=== PATIENT | male | born 1950 | race Caucasian/White ===

== ENCOUNTER → 2020-10-01 10:43 | Outpatient (BNVA) | payer MEDICARE, OTHER, SELFPAY | PROVIDERS: PCP Internal Medicine; Visit Provider Internal Medicine | DX: J44.9 Chronic obstructive pulmonary disease, unspecified (principal); F17.200 Nicotine dependence, unspecified, uncomplicated | CPT/HCPCS: 99212 ==

== ENCOUNTER 2020-10-02 09:01 | Outpatient (REF) | payer MEDICARE, OTHER, SELFPAY ==
[2020-10-02 09:40] LABS: MANUAL DIFF FLAG NO
[2020-10-02 09:55] LABS: Basophils Absolute Auto 0.1 X10*3/uL (0.0-0.2); Basophils Percent Auto 0.7 % (0-2); Eosinophils Absolute Auto 0.3 X10*3/uL (0.0-0.4); Hematocrit 44.3 % (42-52); Hemoglobin 15.1 g/dl (14.0-18.0); Imm Gran Abs Auto 0.04 X10*3/uL (0.00-0.03); Imm Gran Pct Auto 0.5 % (0.0-0.4); Lymphocytes Absolute Auto 2.1 X10*3/uL (1.2-4.9); Lymphocytes Percent Auto 24.6 % (20-40); Mean Corpuscular HGB Conc 34.1 g/dl (31.0-36.0); Mean Corpuscular Hemoglobin 31.8 pg (27.0-33.0); Mean Corpuscular Volume 93.3 fL (80-98); Mean Platelet Volume 9.2 fL (9.4-12.4); Monocytes Absolute Auto 1.1 X10*3/uL (0.1-1.2); Monocytes Percent Auto 12.9 % (2-11); Neutrophils Absolute Auto 5.1 X10*3/uL (2.0-8.3); Neutrophils Percent Auto 58.3 % (45-73); Platelet Count 283 X10*3/uL (160-400); Red Blood Count 4.75 X10*6/uL (4.60-5.80); Red Cell Distribution Width 12.4 % (11.0-16.0); White Blood Count 8.7 X10*3/uL (4.8-10.8)
[2020-10-02 10:09] LABS: Glucose Urine UA NEG (NEG); Leukocyte Esterase Urine NEG (NEG); Nitrite Urine NEG (NEG); Urine Blood TRACE (NEG); Urine Ketones NEG (NEG); Urine Protein NEG (NEG-TRACE)
[2020-10-02 10:17] LABS: Appearance Urine CLEAR; Color Urine YELLOW
[2020-10-02 10:27] LABS: Alanine Aminotransferase 22 U/L (0-40); Albumin Level 4.4 g/dL (3.5-5.0); Alkaline Phosphatase 91 U/L (39-117); Anion Gap 12 (12-20); Aspartate Amino Transferase 17 U/L (5-37); Bilirubin Total 0.6 mg/dL (0.0-1.0); Blood Urea Nitrogen 20 mg/dL (9-16); Calcium 9.1 mg/dL (8.4-10.2); Carbon Dioxide 31 mmol/L (22-29); Chloride 101 mmol/L (96-108); Cholesterol 131 mg/dL; Estimated Glomerular Filt Rate > 60; Glucose Fasting 103 mg/dL (60-99); HDL Cholesterol 42 mg/dL; LDL Cholesterol Calculated 64 mg/dl; Potassium 4.6 mmol/l (3.3-5.1); Sodium 139 mmol/L (135-145); Total Protein 7.4 g/dL (6.5-8.0); Triglycerides 125 mg/dL
[2020-10-02 10:51] LABS: TSH reflex Free T4 0.56 mIU/mL (0.32-4.0)
[2020-10-02 11:10] LABS: RBC Urine 0-2 /HPF (0); Squamous Epithelial Cell Urine TRACE /LPF; WBC Urine 0-2 /HPF (0-4)
== END 2020-10-02 09:02 | disposition home or self-care (01) ==
LOC: HO.LAB 09:01
PROVIDERS: PCP Internal Medicine; Visit Provider Internal Medicine
DX: E78.00 Pure hypercholesterolemia, unspecified (principal); I10 Essential (primary) hypertension; F17.200 Nicotine dependence, unspecified, uncomplicated; E66.3 Overweight
CPT/HCPCS: 36415; 80053; 80061; 81001; 84443; 85025

== ENCOUNTER 2020-10-29 07:46 | Outpatient (REF) | payer MEDICARE, OTHER, SELFPAY ==
--- NOTE | 2020-10-29 07:49 | CT_ITS ---
EXAMINATION: CT ANGIOGRAM ABDOMEN AND PELVIS CLINICAL INFORMATION: Abdominal aortic aneurysm. COMPARISON: None TECHNIQUE: Multiple axial images were obtained through the abdomen and pelvis following the administration of 80 mL of Omnipaque 350 intravenous contrast. Images were reviewed on a dedicated 3-D workstation. This CT examination was performed using dose optimization techniques as appropriate, variously including the following: *Automated exposure control *Adjustment of mA and/or kV according to patient size (this includes techniques or standardized protocols for targeted exams where dose is matched to indication/reason for exam; i.e. extremities or head) *Use of iterative reconstruction technique DLP: 241 mGy-cm FINDINGS: The distal thoracic aorta is normal in caliber. The celiac and superior mesenteric artery origins are widely patent. The inferior mesenteric artery is opacified via a patent marginal artery. Redemonstration of an infrarenal abdominal aortic aneurysm post endovascular repair. At the L3-L4 interspace, the excluded sac measures up to a maximal diameter of 6 x 5.8 cm, similar to the prior study. Distally, there is contrast within the excluded lumen along the posterior surface of the aortic component of the endograft as well as medial to the right iliac component. No defined feeding vessel is identified. Fusiform dilation of the right common iliac is again identified, measuring up to 2.7 cm in diameter, unchanged. The left common iliac is ectatic and measures up to 1.6 cm in diameter. The bilateral common, internal and external iliac arteries are well opacified and without hemodynamically significant stenosis. The proximal femoral vessels are patent. On the right, there is mild ectasia of the right common femoral artery up to 1.3 cm in diameter. There is calcified plaque resulting in mild/moderate narrowing of the left common femoral artery. There is an unremarkable appearance of the venous structures for an arterial phase of contrast. NONVASCULAR: The lung bases are unremarkable. No pleural effusions. The imaged heart is unremarkable. The liver is normal in size, attenuation and overall contour. No focal hepatic lesions are identified. There is no intrahepatic or extrahepatic duct dilation. The gallbladder is unremarkable. The spleen is unremarkable. The adrenal nodules are unremarkable. Minimal prominence of the distal pancreatic duct which is similar to prior. The pancreas is otherwise unremarkable. The kidneys are normal in size and have symmetric nephrograms. No focal renal lesions are identified. There are no renal calculi, hydronephrosis or hydroureter. There is a normal partially distended bladder contour. The prostate is not enlarged. The distal esophagus and stomach are unremarkable. The small and large bowel are normal in caliber. There is scattered colonic diverticulosis without inflammation to suggest diverticulitis. There is a normal appendix. There is no abdominopelvic or retroperitoneal lymphadenopathy seen. There is no free intra-abdominal fluid. There are endplate degenerative changes of the thoracolumbar spine with grade 1 retrolisthesis of L5 on S1. There is no acute or aggressive bony abnormality. CT/CT angio abdomen pelvis IMPRESSION: Stable appearance of infrarenal abdominal aortic aneurysm post endovascular repair. The excluded sac is stable in size and measures up to 6 x 5.8 cm. Distally, there is contrast within the excluded lumen along the posterior surface of the aortic component of the endograft and medial aspect of the right iliac component. Stable right common iliac artery aneurysm and ectasia of the left common iliac artery. Colonic diverticulosis.
[2020-10-29] MEDS: iohexoL 350 MG/ML 100 ML INFUS..BTL IV (08:56)
== END 2020-10-29 07:47 | disposition home or self-care (01) ==
LOC: HO.CT 07:46
PROVIDERS: PCP Internal Medicine; Visit Provider Surgery Vascular Surgery
DX: I71.4 Abdominal aortic aneurysm, without rupture (principal)
CPT/HCPCS: 74174; Q9967

== ENCOUNTER → 2020-11-19 09:43 | Outpatient (BNVA) | payer MEDICARE, OTHER, SELFPAY | PROVIDERS: PCP Internal Medicine; Visit Provider Surgery Vascular Surgery | DX: I71.4 Abdominal aortic aneurysm, without rupture (principal) | CPT/HCPCS: Q3014 ==

== ENCOUNTER → 2020-11-25 08:59 | Outpatient (BNVA) | payer MEDICARE, OTHER, SELFPAY | PROVIDERS: PCP Internal Medicine; Visit Provider Internal Medicine | DX: I25.10 Atherosclerotic heart disease of native coronary artery without angina pectoris (principal); I71.4 Abdominal aortic aneurysm, without rupture; I10 Essential (primary) hypertension; E78.5 Hyperlipidemia, unspecified; F17.200 Nicotine dependence, unspecified, uncomplicated; Z79.82 Long term (current) use of aspirin; Z79.899 Other long term (current) drug therapy; Z71.6 Tobacco abuse counseling | CPT/HCPCS: 93005; 99212 ==

== ENCOUNTER 2021-01-20 15:45 | Outpatient (REF) | payer MEDICARE, OTHER, SELFPAY ==
[2021-01-21 10:54] LABS: SARS COV2 PCR INHOUSE NEGATIVE (Negative)
== END 2021-01-20 15:46 | disposition home or self-care (01) ==
LOC: HO.LAB 15:45
PROVIDERS: Visit Provider Internal Medicine
DX: Z20.822 Contact with and (suspected) exposure to COVID-19 (principal)
CPT/HCPCS: C9803; U0003

== ENCOUNTER 2021-01-27 07:45 | Outpatient (REF) | payer MEDICARE, OTHER, SELFPAY ==
--- NOTE | ~2021-01-27 | CT_ITS ---
EXAMINATION: CT CHEST SCREENING CLINICAL INFORMATION: Lung cancer screening COMPARISON: Previous chest CT most recent November 2019 TECHNIQUE: Multidetector volumetric CT imaging of the chest is performed without contrast using low dose technique. Additional 2D coronal and sagittal reformatted images and axial 3D maximum intensity projection (MIP) images are generated on the CT workstation. This CT examination was performed using dose optimization techniques as appropriate, variously including the following: *Automated exposure control *Adjustment of mA and/or kV according to patient size (this includes techniques or standardized protocols for targeted exams where dose is matched to indication/reason for exam; i.e. extremities or head) *Use of iterative reconstruction technique DLP: 54 mGy-cm FINDINGS: LUNGS: There is evidence of emphysema. There is an irregularly-shaped lobulated central right upper lobe nodule. This is difficult to separate from the adjacent vessels. This measures approximately 3.7 x 1.7 cm in AP and transverse dimension axial image 176 series 5. There is surrounding satellite pulmonary nodules. The largest is a semisolid right upper lobe nodule that measures 1 x 1.1 cm axial image 145 series 4. There is a 3 mm semisolid right middle lobe nodule axial image 302 series 5. There is subsegmental atelectasis at the right lung base. MEDIASTINUM: There may be right hilar lymphadenopathy. There is a slightly enlarged precarinal lymph node that measures 1.2 cm axial image 24 series 3. No other enlarged mediastinal lymph nodes are seen. The heart does not appear enlarged. There is mild coronary artery calcification. There is no pericardial effusion. The thoracic aorta is tortuous. PLEURA: There is no pleural effusion. No pleural mass or thickening. AXILLA: No lymphadenopathy. UPPER ABDOMEN: Unremarkable OSSEOUS STRUCTURES: There are degenerative changes of the spine. CT/CT lung screening IMPRESSION: Increasing central irregularly-shaped right upper lobe nodule suspicious for neoplasm and surrounding satellite right upper lobe nodules. Mediastinal and right hilar lymphadenopathy. Coronary artery calcification. ASSESSMENT: Lung-RADS category 4X: Very suspicious RECOMMENDATION: PET CT scan or sampling recommended. Findings will be communicated by the [place] work flow yarn polishing machine operator Marilin Morris.
== END 2021-01-27 07:46 | disposition home or self-care (01) ==
LOC: HO.CT 07:45
PROVIDERS: Visit Provider Surgery
DX: Z12.2 Encounter for screening for malignant neoplasm of respiratory organs (principal); F17.210 Nicotine dependence, cigarettes, uncomplicated
CPT/HCPCS: 71271

== ENCOUNTER 2021-02-02 12:38 | Outpatient (REF) | payer MEDICARE, OTHER, SELFPAY ==
--- NOTE | 2021-02-02 | PFT_ITS ---
INDICATION: Pulmonary nodule. SPIROMETRY: The FEV1 to FVC 67% with an FEV1 of 1.94 L, which is 69% predicted, and an FVC of 2.87 L, which is 75% predicted. No significant response to bronchodilators noted. Maximum voluntary ventilation 70% predicted. LUNG VOLUMES: Total lung capacity 92% predicted with a residual volume of 122% predicted. DIFFUSION CAPACITY: DLCO 57% predicted. COMPARISONS: None available. INTERPRETATION: There is an obstructive ventilatory defect consistent with moderate COPD. No significant response to bronchodilators noted. The patient also has a mild decrease in maximum voluntary ventilation secondary to deconditioning. Lung volumes do demonstrate a trend of air trapping due to the COPD. The patient also has a moderate diffusion impairment. Clinical correlation warranted. Lowell Virgen MD MR/MODL / [id number]
== END 2021-02-02 12:39 | disposition home or self-care (01) ==
LOC: HO.RESP 12:38
PROVIDERS: PCP Internal Medicine; Visit Provider Surgery
DX: R91.1 Solitary pulmonary nodule (principal)
CPT/HCPCS: 94060; 94727; 94729

== ENCOUNTER → 2021-02-05 10:52 | Outpatient (BNVA) | payer MEDICARE, OTHER, SELFPAY | PROVIDERS: PCP Internal Medicine; Visit Provider Surgery | DX: R91.8 Other nonspecific abnormal finding of lung field (principal); R59.0 Localized enlarged lymph nodes; Z79.899 Other long term (current) drug therapy; Z79.82 Long term (current) use of aspirin; F17.210 Nicotine dependence, cigarettes, uncomplicated | CPT/HCPCS: 99212 ==

== ENCOUNTER → 2021-03-12 09:27 | Outpatient (BNVA) | payer MEDICARE, OTHER, SELFPAY | PROVIDERS: PCP Internal Medicine; Visit Provider Surgery | DX: C34.91 Malignant neoplasm of unspecified part of right bronchus or lung (principal); F17.210 Nicotine dependence, cigarettes, uncomplicated; Z79.899 Other long term (current) drug therapy | CPT/HCPCS: 99212 ==

== ENCOUNTER 2021-03-29 08:26 | Outpatient (REF) | payer MEDICARE, OTHER, SELFPAY ==
--- NOTE | ~2021-03-29 | US_ITS ---
EXAMINATION: US ULTRASOUND-GUIDED CORE BIOPSY AND FNA CLINICAL INFORMATION: Lung cancer. Increased uptake in the left axilla on PET scan. COMPARISON: Previous PET/CT scan 02/05/[address] January 2021. TECHNIQUE: Procedure and risks and benefits including bleeding and infection were discussed with the patient and informed consent was obtained. The left axilla was prepped and draped in the usual sterile fashion. The skin and soft tissues were anesthetized with 1% lidocaine plain. Using ultrasound guidance and a coaxial system, access to the largest left axillary lymph node was obtained. Four 20-gauge core biopsies were obtained. Additional 22-gauge FNA specimen was also obtained. FINDINGS: There are several at least 3 left axillary lymph nodes. The largest lymph node was targeted for ultrasound-guided core biopsy and fine-needle aspiration. This measures 3.2 x 1.5 x 1.3 cm in sagittal AP and longitudinal dimension. This has normal ultrasound morphology with a fatty hilum and normal hilar flow and very thin cortex. US/US biopsy lymph node IMPRESSION: Ultrasound-guided left axillary lymph node core biopsy and FNA.
--- NOTE | ~2021-03-29 | US_ITS ---
EXAMINATION: US ULTRASOUND-GUIDED CORE BIOPSY AND FNA CLINICAL INFORMATION: Lung cancer. Increased uptake in the left axilla on PET scan. COMPARISON: Previous PET/CT scan 02/05/[address] January 2021. TECHNIQUE: Procedure and risks and benefits including bleeding and infection were discussed with the patient and informed consent was obtained. The left axilla was prepped and draped in the usual sterile fashion. The skin and soft tissues were anesthetized with 1% lidocaine plain. Using ultrasound guidance and a coaxial system, access to the largest left axillary lymph node was obtained. Four 20-gauge core biopsies were obtained. Additional 22-gauge FNA specimen was also obtained. FINDINGS: There are several at least 3 left axillary lymph nodes. The largest lymph node was targeted for ultrasound-guided core biopsy and fine-needle aspiration. This measures 3.2 x 1.5 x 1.3 cm in sagittal AP and longitudinal dimension. This has normal ultrasound morphology with a fatty hilum and normal hilar flow and very thin cortex. US/US guided fine needle asp IMPRESSION: Ultrasound-guided left axillary lymph node core biopsy and FNA.
[2021-03-29] MEDS: Lidocaine HCl 1 % MPF 5 ML VIAL SUBCUT (10:30)
== END 2021-03-29 08:27 | disposition home or self-care (01) ==
LOC: HO.US 08:26
PROVIDERS: Visit Provider Surgery
DX: C34.91 Malignant neoplasm of unspecified part of right bronchus or lung (principal); R59.0 Localized enlarged lymph nodes
CPT/HCPCS: 10005; 38505; 76942; 88173; 88305; 88341; 88342

== ENCOUNTER 2021-04-12 10:45 | Outpatient (REF) | payer MEDICARE, OTHER, SELFPAY ==
--- NOTE | ~2021-04-12 | MR_ITS ---
EXAMINATION: MR BRAIN WITHOUT AND WITH CONTRAST CLINICAL INFORMATION: Staging. COMPARISON: Head CT June 04, 2014. TECHNIQUE: Multiplanar, multisequence imaging of the brain was performed before and after the intravenous administration of 8 mL of Gadavist. FINDINGS: There is no acute infarction, mass, hemorrhage, or extra-axial collection. No abnormal or unexpected intracranial enhancement is seen. The ventricles, sulci, and basilar cisterns are normal in size and configuration. Mild to moderate patchy foci of T2/FLAIR hyperintensity are seen in the cerebral white matter compatible with chronic microangiopathy. The flow voids of the major intracranial arteries appear intact. The bones and extracranial soft tissues are within normal limits. Moderate paranasal sinus mucosal thickening is noted MR/MR head/brain wo/w con IMPRESSION: No mass lesion, acute infarction, or abnormal intracranial enhancement.
== END 2021-04-12 10:46 | disposition home or self-care (01) ==
LOC: HO.MRI 10:45
PROVIDERS: PCP Internal Medicine; Visit Provider Internal Medicine
DX: C34.91 Malignant neoplasm of unspecified part of right bronchus or lung (principal)
CPT/HCPCS: 70553; A9585

== ENCOUNTER → 2021-04-23 09:40 | Outpatient (BNVA) | payer MEDICARE, OTHER, SELFPAY | PROVIDERS: PCP Internal Medicine; Visit Provider Surgery | DX: C34.91 Malignant neoplasm of unspecified part of right bronchus or lung (principal); Z79.899 Other long term (current) drug therapy | CPT/HCPCS: 99212 ==

== ENCOUNTER 2021-06-07 10:46 | Outpatient (REF) | payer MEDICARE, OTHER, SELFPAY ==
--- NOTE | ~2021-06-07 | CT_ITS ---
EXAMINATION: CT ANGIOGRAM ABDOMEN AND PELVIS CLINICAL INFORMATION: Dominant renal aortic aneurysm COMPARISON: CT abdomen pelvis on 10/29/2020 TECHNIQUE: Multiple axial images were obtained through the abdomen and pelvis before and following the administration of 80 mL of Omnipaque 350 intravenous contrast. Images were reviewed on a dedicated 3-D workstation. This CT examination was performed using dose optimization techniques as appropriate, variously including the following: *Automated exposure control *Adjustment of mA and/or kV according to patient size (this includes techniques or standardized protocols for targeted exams where dose is matched to indication/reason for exam; i.e. extremities or head) *Use of iterative reconstruction technique DLP: 210 mGy-cm FINDINGS: Lower chest: Unremarkable. There are no pleural effusions. Liver: Normal in size and attenuation. No focal lesions. Gallbladder and bile ducts: The gallbladder is normal. No intrahepatic or extrahepatic biliary ductal dilatation. Spleen: Normal in size and attenuation. Pancreas: Unremarkable. Adrenal glands: Unremarkable. Right kidney: The right kidney is normal. There is no hydronephrosis or hydroureter. Left kidney: The left kidney is normal. There is no hydronephrosis or hydroureter. Lymph nodes: There is no lymphadenopathy in the abdomen or pelvis. Gastrointestinal tract: The stomach, small, and large bowel are normal in course and caliber. Colonic diverticulosis is noted. Urinary bladder: The bladder is normal. Pelvic organs: The prostate is unremarkable. Vasculature: Prior endovascular repair of an infrarenal abdominal aortic aneurysm with an aortobiiliac graft. The [place] aneurysm sac measures 5.9 x 5.9 cm, stable from prior. There is a small thin linear contrast which appears to be outside endograft (series #5, images 43-48) is also stable compared to the prior exam. There is redemonstration of an excluded 2.7 cm right common iliac artery aneurysm. The celiac artery, SMA, and bilateral renal arteries patent. The origin of the CLAUDIA is excluded, however the CLAUDIA fills via retrograde collaterals from the SMA. Additional findings: There is no intraperitoneal free air or fluid. Soft tissues: Unremarkable. Osseous structures: Degenerative disc disease of L5-S1. CT/CT angio abdomen pelvis IMPRESSION: 1. Endovascular repair of an infrarenal abdominal aortic aneurysm with an aortobiiliac graft. Stable size and appearance of the [place] aneurysm sac. No definite evidence of endoleak. 2. Stable size of the excluded right common iliac artery aneurysm.
[2021-06-07] MEDS: iohexoL 350 MG/ML 100 ML INFUS..BTL IV (11:39)
== END 2021-06-07 10:47 | disposition home or self-care (01) ==
LOC: HO.CT 10:46
PROVIDERS: Visit Provider Surgery Vascular Surgery
DX: I71.4 Abdominal aortic aneurysm, without rupture (principal)
CPT/HCPCS: 74174; Q9967

== ENCOUNTER → 2021-06-17 09:22 | Outpatient (BNVA) | payer MEDICARE, OTHER, SELFPAY | PROVIDERS: PCP Internal Medicine; Referring Provider Internal Medicine; Visit Provider Surgery Vascular Surgery | DX: I71.4 Abdominal aortic aneurysm, without rupture (principal) | CPT/HCPCS: 99212 ==

== ENCOUNTER 2021-08-20 07:42 | Outpatient (REF) | payer MEDICARE, OTHER, SELFPAY ==
[2021-08-20 08:24] LABS: Blood Urea Nitrogen 14 mg/dL (9-16); Estimated Glomerular Filt Rate > 60
== END 2021-08-20 07:43 | disposition home or self-care (01) ==
LOC: HO.LAB 07:42
PROVIDERS: PCP Internal Medicine; Visit Provider Surgery
DX: C34.91 Malignant neoplasm of unspecified part of right bronchus or lung (principal)
CPT/HCPCS: 36415; 82565; 84520

== ENCOUNTER 2021-08-23 08:41 | Outpatient (REF) | payer MEDICARE, OTHER, SELFPAY ==
--- NOTE | ~2021-08-23 | CT_ITS ---
EXAMINATION: CT CHEST WITH CONTRAST CLINICAL INFORMATION: Lung cancer. COMPARISON: Previous chest CT January 2021 TECHNIQUE: Multidetector volumetric CT imaging of the chest was obtained after the administration of 85 mL of Omnipaque 350 intravenous contrast without immediate adverse reactions. Axial MIP volume rendering provided. Sagittal and coronal reformatted images were obtained. This CT examination was performed using dose optimization techniques as appropriate, variously including the following: *Automated exposure control *Adjustment of mA and/or kV according to patient size (this includes techniques or standardized protocols for targeted exams where dose is matched to indication/reason for exam; i.e. extremities or head) *Use of iterative reconstruction technique DLP: 113 mGy-cm FINDINGS: LUNGS: The previously identified central right upper lobe nodule appears decreased in size. There is residual bronchial wall thickening seen in this region. This is difficult to measure and compare with previous exam. The largest nodular component separate from blood vessels measures 0.7 x 1.2 cm axial image 159 series 7, however, including the entire area including the airways and adjacent vessel, this measures 1.5 x 3 cm axial image 156 series 4. There is an area of bronchial soft tissue opacification that extends anteromedially axial image 155 series 7. The previously identified more superior medial right upper lobe semisolid nodule measuring 8 mm axial image 147 series 5 on January 2021 exam is no longer seen. There are scattered areas of bronchial soft tissue opacification seen in the right upper lobe. The lungs are otherwise clear. MEDIASTINUM: There are small bilateral hilar and mediastinal lymph nodes. No enlarged lymph nodes are seen. The heart does not appear enlarged. There is no coronary artery calcification. The thoracic aorta is tortuous. There is plaque seen in the proximal descending thoracic aorta. PLEURA: There is no pleural effusion. No pleural mass or thickening. AXILLA: There are small bilateral axillary lymph nodes. No enlarged axillary lymph nodes are seen. No chest wall mass is seen. OSSEOUS STRUCTURES: There are degenerative changes of the spine. No fracture or bone lesion is seen. CT/CT chest w con IMPRESSION: Interval decrease in size in the central right upper lobe nodule. There is residual bronchial wall thickening and areas of bronchial soft tissue opacification in the right upper lobe.
--- NOTE | ~2021-08-23 | CT_ITS ---
EXAMINATION: CT ABDOMEN WITH CONTRAST CLINICAL INFORMATION: Lung cancer. COMPARISON: Previous CTA of the abdomen and pelvis May [address] and multiple nonenhanced chest CT scans. TECHNIQUE: Contiguous axial thin section helical images of the abdomen were performed following the administration of oral contrast and 85 mL of Omnipaque 350 intravenous contrast. The data set was reformatted in the coronal and sagittal planes and reviewed on an independent workstation. This CT examination was performed using dose optimization techniques as appropriate, variously including the following: *Automated exposure control *Adjustment of mA and/or kV according to patient size (this includes techniques or standardized protocols for targeted exams where dose is matched to indication/reason for exam; i.e. extremities or head) *Use of iterative reconstruction technique DLP: 165 mGy-cm FINDINGS: LIVER, GALLBLADDER, AND BILIARY TREE: The liver is normal in size, shape and attenuation. There is a small 5 mm low-attenuation lesion in the high dome of the liver axial image 10 series 3. This is not appreciated on previous exams. This is difficult to characterize due to small size. The gallbladder is normal. There is no biliary duct dilatation. PANCREAS: The main pancreatic duct in the head of the pancreas is slightly prominent measuring 4-5 mm. The pancreas is otherwise unremarkable. SPLEEN: Unremarkable. ADRENAL GLANDS AND KIDNEYS: The adrenal glands are unremarkable. There is a small cyst in the upper pole of the right kidney. The kidneys are otherwise unremarkable. BOWEL LOOPS: There is diverticulosis of the colon. Visualized bowel is otherwise unremarkable. The visualized appendix is unremarkable. LYMPH NODES: Normal. There is a small umbilical hernia containing fat. VASCULAR: There is an abdominal aortic aneurysm. This measures 5 x 5.1 cm in transverse and AP dimension and does not appear appreciably changed in size or shape. There is an aortic stent graft that appears unchanged. BONES: There is degenerative disc disease at L5-S1. CT/CT abdomen w con IMPRESSION: 5 mm liver lesion difficult to characterize due to small size. This is not identified on previous available exams. Slightly prominent pancreatic duct measuring 4-5 mm in the head of the pancreas similar to previous exams. Diverticulosis of the colon. Small right renal cyst. Stable abdominal aortic aneurysm and aortic stent graft.
[2021-08-23] MEDS: iohexoL 350 MG/ML 100 ML INFUS..BTL 85 ML IV (10:46)
== END 2021-08-23 08:42 | disposition home or self-care (01) ==
LOC: HO.CT 08:41
PROVIDERS: Visit Provider Surgery
DX: C34.91 Malignant neoplasm of unspecified part of right bronchus or lung (principal); R91.1 Solitary pulmonary nodule
CPT/HCPCS: 71260; 74160; Q9967

== ENCOUNTER → 2021-08-27 09:25 | Outpatient (BNVA) | payer MEDICARE, OTHER, SELFPAY | PROVIDERS: PCP Internal Medicine; Visit Provider Surgery | DX: C34.91 Malignant neoplasm of unspecified part of right bronchus or lung (principal); R59.0 Localized enlarged lymph nodes; Z79.899 Other long term (current) drug therapy; Z79.82 Long term (current) use of aspirin; Z87.891 Personal history of nicotine dependence | CPT/HCPCS: 99212 ==

== ENCOUNTER 2021-09-06 14:46 | Outpatient (REF) | payer MEDICARE, OTHER, SELFPAY ==
--- NOTE | ~2021-09-06 | MR_ITS ---
EXAMINATION: MR ABDOMEN WITHOUT AND WITH CONTRAST CLINICAL INFORMATION: Previous reports indicate history of lung cancer. Abnormal CT. The report of CT 08/23/2021 indicates 0.5 cm low attenuating lesion dome of liver. Dilation of the main pancreatic duct. COMPARISON: Selected portions of CT 08/23/2021. TECHNIQUE: Anatomic and fluid sensitive MR sequences were used to examine the abdomen. Imaging before and after the IV administration of 7.5 mL of Gadavist. FINDINGS: LIVER: There is a sharply defined homogeneous T2 intense non-enhancing mass in hepatic segment 8 which corresponds to the findings on recent CT. This is the morphology, signal pattern and lack of enhancement diagnostic of a small cyst. This does not have any suspicious features and does not require any further evaluation. The right lobe of the liver measures 15.6 cm which is close to the mean expected. The hepatic contour is smooth. The background hepatic signal is homogeneous. There is no suspicious focal liver lesion. BILIARY TRACT: The gallbladder is not distended. There is no cholelithiasis. There is no biliary dilation. SPLEEN: Within normal limits. PANCREAS: The main pancreatic duct is mildly prominent. This appears similar to CT angiography of 04/27/2020. There is no pancreatic mass or peripancreatic stranding. ADRENAL GLANDS: Within normal limits. KIDNEYS: There is no dilation of the urinary collecting system on either side. No suspicious renal mass. The nephrograms are homogeneous and symmetric. There is mild nonspecific perinephric stranding. GASTROINTESTINAL TRACT: There is no small bowel dilation. No definite bowel wall thickening. ABDOMINAL WALL: No significant hernia is appreciated. LYMPHOVASCULAR STRUCTURES AND FLUID: There is a known abdominal aortic aneurysm. There has been endograft treatment. No retroperitoneal hemorrhage. MUSCULOSKELETAL: No acute or suspicious osseous abnormality. VISUALIZED LOWER CHEST: The chest has been recently examined. No large signal abnormality in the visualized lung bases. MR/MR abdomen wo/w con IMPRESSION: 1. The low attenuating lesion in the dome of the liver on CT corresponds to a cyst. This is benign and does not require any further evaluation. 2. There is mild nonspecific pancreatic ductal dilation without evidence of mass, extrinsic compression or pancreatic mass. This is not significantly changed since at least 04/27/2020.
== END 2021-09-06 14:47 | disposition home or self-care (01) ==
LOC: HO.MRI 14:46
PROVIDERS: Visit Provider Surgery
DX: C34.91 Malignant neoplasm of unspecified part of right bronchus or lung (principal)
CPT/HCPCS: 74183; A9585

== ENCOUNTER 2021-09-14 13:04 | Outpatient (REF) | payer MEDICARE, OTHER, SELFPAY ==
--- NOTE | ~2021-09-14 | PE_ITS ---
EXAMINATION: Fluorine-18 FDG PET/CT Scan CLINICAL INDICATION: Subsequent treatment management. Malignant neoplasm of unspecified part of right lung. Status post chemotherapy and radiation therapy May,. PROCEDURE: 62 minutes following the intravenous administration of 13.6 mCi of fluorine 18 FDG, images from the base of the skull to the mid thighs were obtained using a combined PET/CT scanner with CT scan based attenuation correction. No oral contrast was administered. No intravenous contrast was administered. Transverse, coronal, sagittal, and volume reconstruction projections were obtained. The patient's blood glucose as determined by a finger stick, was 102 mg/dl immediately prior to injection. Total CT exam dose-length product 449.08 mGy-cm * These CT images were obtained using dose optimization techniques as appropriate, variously including the following: Automated exposure control * Adjustment of mA and/or kV according to patient size (this includes techniques or standardized protocols for targeted exams where dose is matched to indication/reason for exam; i.e. extremities or head) * Use of iterative reconstruction technique COMPARISON: Neither the images nor the report of a prior PET CT scan dated 02/05/2021, likely performed at [facility], are not available. More recent diagnostic CT scan of the chest, abdomen, and pelvis, dated 08/23/2021, is available for comparison. MRI of the abdomen dated 09/06/2021 is also available for comparison. A less recent chest CT scan dated 01/27/2021 is also available for comparison. FINDINGS: NECK AND VISUALIZED HEAD: No foci of abnormal FDG activity are noted. The distribution of FDG activity is physiological. There is no cervical lymphadenopathy. There is prominent mucosal thickening with associated mildly increased FDG activity in the left maxillary sinus, likely due to a sinusitis. THORAX: There is mildly increased FDG activity, SUVmax 2.6, slice 83/267, in the mid right upper lobe in the region of a 3.7 x 1.7 cm irregularly-shaped opacity visualized on the 01/28/2020 CT scan. Opacity in this region is not well delineated on the current study and the CT appearance is similar to the more recent 08/26/2021 CT scan which shows some irregular opacity abutting bronchi and vessels in this region but without clear margins on the current CT images. No additional pulmonary nodules are visualized. There is a focus of mildly increased FDG activity in the mid esophagus, just superior to the level of the [place] showing SUVmax 3.9, slice 80/267 with no definite corresponding CT abnormality. No additional foci of abnormal FDG activity are present in the chest. There is no mediastinal, supraclavicular, or axillary lymphadenopathy. There is no pleural or pericardial fluid, or pneumothorax. ABDOMEN AND PELVIS: No foci of abnormal FDG activity are present in the abdomen or pelvis. The liver is unremarkable. A 0.5 cm hypodensity in the dome of the right lobe visualized on the diagnostic IV contrast enhanced CT scan dated 08/23/2021, and subsequently identified is a small cyst on the 09/06/2021 MRI is not evident on these nondiagnostic CT images. There is no abnormal FDG activity at any site in the liver. A subcentimeter hypodense cyst posteriorly in the upper pole of the right kidney is unchanged from prior studies and probably too small to characterize on the FDG PET images but likely photopenic. The kidneys are otherwise unremarkable. The gallbladder, spleen, adrenal glands and pancreas are unremarkable. There is mild FDG activity throughout the gastrointestinal tract without a suspicious focal component. There is diverticulosis without evidence of diverticulitis. The hollow viscera are otherwise unremarkable. The pelvic organs are unremarkable. There is no retroperitoneal, mesenteric, pelvic or inguinal lymphadenopathy. MUSCULOSKELETAL: There are no foci of abnormal FDG activity in the osseous structures. There are degenerative changes in the spine and chronic anterior wedge deformity with no associated abnormal FDG activity of the T7. VASCULAR: Diffuse vascular calcifications including coronary are noted. An aortobiiliac vascular graft is in place with no associated abnormal FDG activity. PET/PET CT fusion skull to thigh IMPRESSION: 1. There is mild FDG activity in the region of an opacity identified on the 01/27/[address] scan. This opacity is now significantly smaller on these nondiagnostic CT images as well as on the recent diagnostic 08/23/2021 CT scan. These findings suggest a significant response to therapy, but neither the report nor the images of a prior PET CT scan dated 02/05/2021 are available for comparison. If these become available, an addendum to this report will be dictated. 2. A small focus of mild FDG activity is present in the mid esophagus just superior to the level of the [place] and this is nonspecific. This could be inflammatory or malignant in etiology. No associated CT abnormality is present. This could be further characterized with endoscopy, if clinically indicated. 3. No additional abnormalities suspicious for other metastatic or malignant lesions are noted. 4. Left maxillary sinusitis. 5. Diffuse vascular calcifications including coronary.
== END 2021-09-14 13:05 | disposition home or self-care (01) ==
LOC: HO.PET 13:04
PROVIDERS: PCP Internal Medicine; Visit Provider Surgery
DX: Z13.89 Encounter for screening for other disorder (principal)

== ENCOUNTER → 2021-10-01 09:25 | Outpatient (BNVA) | payer MEDICARE, OTHER, SELFPAY | PROVIDERS: PCP Internal Medicine; Visit Provider Surgery | DX: C34.91 Malignant neoplasm of unspecified part of right bronchus or lung (principal); Z79.899 Other long term (current) drug therapy; Z87.891 Personal history of nicotine dependence | CPT/HCPCS: 99212 ==

== ENCOUNTER 2021-10-05 14:04 | Outpatient (REF) | payer MEDICARE, OTHER, SELFPAY ==
--- NOTE | 2021-10-05 16:03 | PFT_ITS ---
Forced vital capacity is slightly reduced. FEV1, moderately reduced. CXH41-33 is markedly reduced. MVV, moderately reduced. No response to bronchodilator therapy was noted. Total lung capacity is normal. Residual volume is slightly increased. Diffusion capacity, moderately decreased. CONCLUSION: Chronic obstructive pulmonary disease, moderately severe. No response to bronchodilator therapy was noted. MD DIMA Coates/MODL / [id number]
== END 2021-10-05 14:05 | disposition home or self-care (01) ==
LOC: HO.RESP 14:04
PROVIDERS: PCP Internal Medicine; Visit Provider Surgery
DX: C34.91 Malignant neoplasm of unspecified part of right bronchus or lung (principal)
CPT/HCPCS: 94060; 94727; 94729

== ENCOUNTER → 2021-11-29 08:42 | Outpatient (BNVA) | payer MEDICARE, OTHER, SELFPAY | PROVIDERS: PCP Internal Medicine; Referring Provider Internal Medicine; Visit Provider Internal Medicine | DX: I25.10 Atherosclerotic heart disease of native coronary artery without angina pectoris (principal); I71.4 Abdominal aortic aneurysm, without rupture; I10 Essential (primary) hypertension; E78.5 Hyperlipidemia, unspecified | CPT/HCPCS: 93005; 99212 ==

== ENCOUNTER 2022-02-16 07:48 | Outpatient (REF) | payer MEDICARE, OTHER, SELFPAY ==
[2022-02-16 08:14] LABS: MANUAL DIFF FLAG NO
[2022-02-16 08:37] LABS: Basophils Percent Auto 0.5 % (0-2); Eosinophils Absolute Auto 0.2 X10*3/uL (0.0-0.4); Eosinophils Percent Auto 2.2 % (0-4); Hematocrit 39.6 % (42.0-52.0); Hemoglobin 13.4 g/dl (14.0-18.0); Imm Gran Abs Auto 0.02 X10*3/uL (0.00-0.03); Imm Gran Pct Auto 0.3 % (0.0-0.4); Lymphocytes Absolute Auto 1.1 X10*3/uL (1.2-4.9); Lymphocytes Percent Auto 14.3 % (20-40); Mean Corpuscular HGB Conc 33.8 g/dl (31.0-36.0); Mean Corpuscular Volume 91.7 fL (80.0-98.0); Monocytes Percent Auto 12.4 % (2-11); Neutrophils Absolute Auto 5.4 x10*3/uL (2.0-8.3); Neutrophils Percent Auto 70.3 % (45-73); Platelet Count 227 X10*3/uL (160-400); Red Blood Count 4.32 X10*6/uL (4.60-5.80); Red Cell Distribution Width 12.7 % (11.0-16.0); White Blood Count 7.7 X10*3/uL (4.8-10.8)
[2022-02-16 09:09] LABS: Alanine Aminotransferase 17 U/L (0-40); Albumin Level 4.5 g/dL (3.5-5.0); Alkaline Phosphatase 104 U/L (39-117); Anion Gap 13 (12-20); Aspartate Amino Transferase 15 U/L (5-37); Bilirubin Total 0.4 mg/dL (0.0-1.0); Blood Urea Nitrogen 19 mg/dL (9-16); Calcium 9.7 mg/dL (8.4-10.2); Carbon Dioxide 29 mmol/L (22-29); Chloride 100 mmol/L (96-108); Cholesterol 124 mg/dL; Estimated Glomerular Filt Rate > 60; Glucose Fasting 109 mg/dL (60-99); HDL Cholesterol 36 mg/dL; LDL Cholesterol Calculated 60 mg/dl; Potassium 4.4 mmol/L (3.3-5.1); Sodium 138 mmol/L (135-145); Total Protein 7.5 g/dL (6.5-8.0); Triglycerides 140 mg/dL
[2022-02-16 09:44] LABS: Appearance Urine CLEAR; Color Urine YELLOW; Glucose Urine UA NEG (NEG); Leukocyte Esterase Urine NEG (NEG); Nitrite Urine NEG (NEG); Urine Blood NEG (NEG); Urine Ketones NEG (NEG); Urine Protein NEG (NEG-TRACE)
== END 2022-02-16 07:49 | disposition home or self-care (01) ==
LOC: HO.LAB 07:48
PROVIDERS: PCP Internal Medicine; Visit Provider Internal Medicine
DX: I10 Essential (primary) hypertension (principal); E78.00 Pure hypercholesterolemia, unspecified
CPT/HCPCS: 36415; 80053; 80061; 81003; 84443; 85025

== ENCOUNTER 2022-05-04 09:43 | Outpatient (REF) | payer MEDICARE, OTHER, SELFPAY ==
--- NOTE | ~2022-05-04 | CT_ITS ---
EXAMINATION: CT CHEST WITHOUT CONTRAST CLINICAL INFORMATION: Right lung cancer. COMPARISON: 08/23/2021 and studies dating back to 12/07/2018. TECHNIQUE: Multidetector volumetric CT imaging of the chest was done. Axial MIP volume rendering provided. Sagittal and coronal reformatted images were obtained. This CT examination was performed using dose optimization techniques as appropriate, variously including the following: *Automated exposure control *Adjustment of mA and/or kV according to patient size (this includes techniques or standardized protocols for targeted exams where dose is matched to indication/reason for exam; i.e. extremities or head) *Use of iterative reconstruction technique DLP: 182 mGy-cm. FINDINGS: LUNGS: Since previous study, patient appears be status post partial right upper lobe resection. Central airways are patent. No bronchiectasis is appreciated. No confluent region of acute disease is appreciated. There are changes of centrilobular emphysema present as well as a few pleural blebs. There are a few scattered sub-4 mm densities present. Some of these appear to lie within bronchi. Within the lingula, subpleural location, there is a 4 mm noncalcified density on image 377 of 719 and series #7. I do not definitely see this on study of 08/23/2021. Comparison of the central right upper lobe mass and lymph nodes are limited with the postsurgical appearance as well as lack of IV contrast. MEDIASTINUM: Previously noted precarinal lymphadenopathy has improved since previous study. Thyroid gland appears unremarkable. Heart normal size. No pericardial effusion. Coronary artery calcifications are seen. No thoracic aortic aneurysm. There is nonocclusive calcified plaque within the aortic arch. PLEURA: There is a new small right pleural effusion. AXILLA: No lymphadenopathy. UPPER ABDOMEN: The proximal aspect of an abdominal aortic stent graft is seen. OSSEOUS STRUCTURES: No suspicious destructive bony lesions identified. There is multilevel degenerative disc disease seen within the mid thoracic spine. There is some mild anterior compression of the T6 vertebral body with approximately 40% loss of height. CT/CT chest wo con IMPRESSION: Interval right upper lobe resection with postsurgical change. Partially loculated right pleural effusion. Improvement in mediastinal lymphadenopathy. Changes of emphysema. Fleischner guidelines were followed.
== END 2022-05-04 09:44 | disposition home or self-care (01) ==
LOC: HO.CT 09:43
PROVIDERS: PCP Internal Medicine; Visit Provider Surgery
DX: C34.91 Malignant neoplasm of unspecified part of right bronchus or lung (principal)
CPT/HCPCS: 71250

== ENCOUNTER → 2022-05-13 09:54 | Outpatient (BNVA) | payer MEDICARE, OTHER, SELFPAY | PROVIDERS: PCP Internal Medicine; Visit Provider Surgery | DX: C34.91 Malignant neoplasm of unspecified part of right bronchus or lung (principal) | CPT/HCPCS: 99212 ==

== ENCOUNTER → 2022-05-23 07:23 | Outpatient (REF) | payer MEDICARE, OTHER, SELFPAY ==
--- NOTE | 2022-05-23 07:39 | CA_ITS ---
Transthoracic Echocardiogram Patient (Last, First, Middle): Mateus Ortega J Gender: Male Date of : 1950 Age: 72 Procedure Date: 05/23/2022 Procedure Type: Transthoracic Echocardiogram Location: OP Height: 167.64 cm Weight: 72.58 kg BSA: 1.82 m2 Heart Rate: bpm BP: 135 / 70 mmHg Utility Locate Technician: TO Referring MD: Aidan Elmore MD Steelscope Operator: Jeff Leal MD Symptoms: I25.10 - Atherosclerotic heart disease of [place] coronary... Study Quality: Adequate ECG Rhythm: Sinus Conclusions: - 1. Normal LV systolic function with impaired relaxation filling pattern 2. Trivial aortic regurgitation 3. Normal RV systolic pressure 4. No pericardial effusion Findings Left Ventricle Normal left ventricular size, thickness, and systolic function. The visually estimated ejection fraction is between 60-65%. Spectral Doppler is indicative of an impaired relaxation filling pattern. E/E prime ratio is between 8 and 15 consistent with indeterminate filling pressures. Wall Motion Rest Echo Findings The basal inferior segment is hypokinetic. All other scored wall segments showed normal motion. Right Ventricle Normal right ventricular cavity size and systolic function. Atria The left atrium is normal in size. There is lipomatous hypertrophy of the interatrial septum. There is no evidence of interatrial shunt. The right atrium is normal in size. Aortic Valve There is mild calcification of the aortic valve. There is no aortic valve stenosis. There is trace (trivial) aortic valve regurgitation. Mitral Valve There is mild anterior and posterior mitral leaflet thickening. There is trace mitral valve regurgitation. There is no mitral valve stenosis. Pulmonic Valve The pulmonic valve is likely normal. There is trace pulmonic valve regurgitation. Tricuspid Valve Normal tricuspid valve structure. There is trace tricuspid valve regurgitation. The right ventricular systolic pressure is normal. The right ventricular systolic pressure is 15 mmHg. There is no evidence of pulmonary hypertension. Great Vessels The pulmonary artery was not well visualized. Moderate plaque is seen in the descending thoracic aorta. Venous The inferior vena cava is normal in size and collapses greater than 50% with inspiration. Pericardium/Pleural There is no evidence of pericardial effusion. Prior Study Comparison No significant change compared to prior study dated: 10/02/2019. Measurements 2D Linear Measurements IVSd: 1.01 0.6-0.9/0.6-1.0 cm LVIDd: 3.89 3.9-5.3/4.2-5.9 cm LVIDd Index: 2.14 2.4-3.2/2.2-3.1 cm/m2 LVIDs: 2.83 2.0-3.6 cm LVPWd: 0.98 0.7-1.1 cm LA Diam: 3.00 2.7-3.8/3.0-4.0 cm LAIDs Index: 1.65 1.5-2.3 cm/m2 LV Mass: 172.87 67-162/88-224 g LV Mass Index: 94.99 43-95/49-115 g/m2 LVOT Diam: 2.00 3.0+(-)1.3 cm 2D Systolic Function EF 4C: 61.50 >55% EF 2C: 57.90 >55% EF BiP: 60.40 >55% Mitral Valve MV Pk E: 0.69 MV PK A: 0.89 MV Decel Time: 217.00 E/A: 0.80 E'Lateral: 8.38 E'Medial: 5.98 E/E' Med: 11.50 E/E' Lat: 8.20 PHT: 63.00 MVA PHT: 3.49 Decel Rooks: 3.16 Aortic Valve AoV Pk [place]: 1.42 AoV Mn [place]: 0.92 AoV VTI: 0.24 AoV Pk Grad: 8.00 Aov Mn Grad: 4.00 NATE Cont.VTI: 2.73 LVOT LVOT Pk [place]: 1.19 LVOT Mn [place]: 0.70 LVOT VTI: 0.21 LVOT Pk Grad: 6.00 LVOT Mn Grad: 2.00 LVOT Diam: 2.00 LVOT Area: 3.14 Diastolic Function MV Pk E: 0.69 MV Pk A: 0.89 E/A: 0.80 E'Medial: 5.98 E/E' Med: 11.50 E' Laterial: 8.38 E/E' Lat: 8.20 Right Ventricle TAPSE (mm): 23.00 TVS' Bernard[place]: 14.00 Tricuspid Valve TR Pk [place]: 1.74 TR Pk Grad: 12.00 RA Press: 3.00 RVSP: 15.00 Great Vessels Aorta Sinus of Valsalva: 3.72 2.0-3.[address] [place]: 2.90 1.7-3.4 cm Ao Asc: 3.60 2.1-3.4 cm Updated in Other Vendor System with Status of Final Jeff Leal MD electronically signed on 05/23/2022 4:00:02 PM with status of Final
== END ==
LOC: HO.CARD 07:23
PROVIDERS: Visit Provider Internal Medicine
DX: I25.10 Atherosclerotic heart disease of native coronary artery without angina pectoris (principal); C34.91 Malignant neoplasm of unspecified part of right bronchus or lung
CPT/HCPCS: 93306

== ENCOUNTER 2022-05-25 10:07 | Outpatient (REF) | payer MEDICARE, OTHER, SELFPAY ==
[2022-05-25 10:29] LABS: MANUAL DIFF FLAG NO
[2022-05-25 10:54] LABS: Appearance Urine CLEAR; Color Urine YELLOW; Glucose Urine UA NEG (NEG); Leukocyte Esterase Urine NEG (NEG); Nitrite Urine NEG (NEG); Specific Gravity - Urine <= 1.005 (1.005-1.025); Urine Blood NEG (NEG); Urine Ketones NEG (NEG); Urine Protein NEG (NEG-TRACE)
[2022-05-25 10:55] LABS: Basophils Percent Auto 0.5 % (0-2); Eosinophils Absolute Auto 0.1 X10*3/uL (0.0-0.4); Eosinophils Percent Auto 1.5 % (0-4); Hematocrit 37.4 % (42.0-52.0); Hemoglobin 12.8 g/dl (14.0-18.0); Imm Gran Abs Auto 0.02 X10*3/uL (0.00-0.03); Imm Gran Pct Auto 0.3 % (0.0-0.4); Lymphocytes Absolute Auto 1.1 X10*3/uL (1.2-4.9); Lymphocytes Percent Auto 13.9 % (20-40); Mean Corpuscular HGB Conc 34.2 g/dl (31.0-36.0); Mean Corpuscular Hemoglobin 31.3 pg (27.0-33.0); Mean Corpuscular Volume 91.4 fL (80.0-98.0); Mean Platelet Volume 8.5 fL (9.4-12.4); Monocytes Absolute Auto 0.9 X10*3/uL (0.1-1.2); Monocytes Percent Auto 11.8 % (2-11); Neutrophils Absolute Auto 5.6 x10*3/uL (2.0-8.3); Platelet Count 260 X10*3/uL (160-400); Red Blood Count 4.09 X10*6/uL (4.60-5.80); Red Cell Distribution Width 13.2 % (11.0-16.0); White Blood Count 7.8 X10*3/uL (4.8-10.8)
[2022-05-25 14:15] LABS: Vitamin D 25-OH Total 30.1 ng/mL (>30)
[2022-05-25 14:16] LABS: Alanine Aminotransferase 17 U/L (0-40); Albumin Level 4.4 g/dL (3.5-5.0); Alkaline Phosphatase 96 U/L (39-117); Anion Gap 16 (12-20); Aspartate Amino Transferase 17 U/L (5-37); Bilirubin Total 0.6 mg/dL (0.0-1.0); Blood Urea Nitrogen 15 mg/dL (9-16); Calcium 9.4 mg/dL (8.4-10.2); Carbon Dioxide 27 mmol/L (22-29); Chloride 99 mmol/L (96-108); Cholesterol 107 mg/dL; Estimated Glomerular Filt Rate > 60; Glucose Fasting 107 mg/dL (60-99); HDL Cholesterol 43 mg/dL; LDL Cholesterol Calculated 52 mg/dl; Potassium 4.6 mmol/L (3.3-5.1); Sodium 137 mmol/L (135-145); Total Protein 7.3 g/dL (6.5-8.0); Triglycerides 60 mg/dL
== END 2022-05-25 10:08 | disposition home or self-care (01) ==
LOC: HO.LAB 10:07
PROVIDERS: PCP Internal Medicine; Visit Provider Surgery Vascular Surgery
DX: E78.00 Pure hypercholesterolemia, unspecified (principal); E55.9 Vitamin D deficiency, unspecified; I10 Essential (primary) hypertension
CPT/HCPCS: 36415; 80053; 80061; 81003; 82306; 85025

== ENCOUNTER 2022-05-27 10:51 | Outpatient (REF) | payer MEDICARE, OTHER, SELFPAY ==
--- NOTE | ~2022-05-27 | CT_ITS ---
EXAMINATION: CT ANGIOGRAM ABDOMEN AND PELVIS CLINICAL INFORMATION: Dominant renal aortic aneurysm. COMPARISON: CT of the chest, abdomen and pelvis 08/23/[address] angiogram of the abdomen 06/07/2021. TECHNIQUE: Multiple axial images were obtained through the abdomen and pelvis before and following the administration of 80 mL of Omnipaque 350 intravenous contrast. Images were reviewed on a dedicated 3-D workstation. This CT examination was performed using dose optimization techniques as appropriate, variously including the following: *Automated exposure control *Adjustment of mA and/or kV according to patient size (this includes techniques or standardized protocols for targeted exams where dose is matched to indication/reason for exam; i.e. extremities or head) *Use of iterative reconstruction technique DLP: 221 mGy-cm VASCULAR FINDINGS: Once again seen is an endovascular repair of an infrarenal abdominal aortic aneurysm with an aortobiiliac graft. The [place] aneurysm sac is definitely decreased in size since the previous study where it had measured 5.7 x 5.0 cm (08/23/2021, 3:37) and currently measures 5.2 x 4.6 cm (5:39). Once again seen is small thin linear contrast collection which appears to be outside endograft (5:46-50) is stable compared to the prior exam. Again seen is an excluded 2.7 cm right common iliac artery aneurysm. The celiac artery, SMA, and bilateral renal arteries are patent. The origin of the CLAUDIA is excluded, however the CLAUDIA continues to fill via retrograde collaterals from the SMA. FINDINGS: LOWER CHEST: There is a new right-sided pleural effusion present [id number]. No lung masses are seen. LIVER: Normal in size and attenuation. No focal lesions. GALLBLADDER AND BILE DUCTS: The gallbladder is normal. No intrahepatic or extrahepatic biliary ductal dilatation. SPLEEN: Normal in size and attenuation. PANCREAS: Unremarkable. ADRENAL GLANDS: Unremarkable. RIGHT KIDNEY: The right kidney is normal. There is no hydronephrosis or hydroureter. LEFT KIDNEY: The left kidney is normal. There is no hydronephrosis or hydroureter. LYMPH NODES: There is no lymphadenopathy in the abdomen or pelvis. GASTROINTESTINAL TRACT: The stomach, small, and large bowel are normal in course and caliber. Colonic diverticulosis is noted without diverticulitis. The appendix is normal. URINARY BLADDER: The bladder is normal. PELVIC ORGANS: There is mild BPH. There is no intraperitoneal free air or fluid. OSSEOUS STRUCTURES: Again seen is degenerative disc disease at L5-S1. CT/CT angio abdomen pelvis IMPRESSION: 1. Status post aortobiiliac repair of AAA. The aortic sac size has decreased in size significantly without evidence of a convincing endoleak. 2. Stable size of the excluded right common iliac artery aneurysm.
[2022-05-27] MEDS: iohexoL 350 MG/ML 100 ML INFUS..BTL IV (12:01)
== END 2022-05-27 10:52 | disposition home or self-care (01) ==
LOC: HO.CT 10:51
PROVIDERS: Visit Provider Surgery Vascular Surgery
DX: I71.4 Abdominal aortic aneurysm, without rupture (principal); Z98.890 Other specified postprocedural states
CPT/HCPCS: 74174; Q9967

== ENCOUNTER → 2022-06-16 15:12 | Outpatient (BNVA) | payer MEDICARE, OTHER, SELFPAY | PROVIDERS: PCP Internal Medicine; Visit Provider Surgery Vascular Surgery | DX: I71.4 Abdominal aortic aneurysm, without rupture (principal); I72.3 Aneurysm of iliac artery; Z98.890 Other specified postprocedural states | CPT/HCPCS: 99212 ==

== ENCOUNTER → 2022-06-23 08:20 | Outpatient (BNVA) | payer MEDICARE, OTHER, SELFPAY | PROVIDERS: PCP Internal Medicine; Referring Provider Internal Medicine; Visit Provider Internal Medicine | DX: I25.10 Atherosclerotic heart disease of native coronary artery without angina pectoris (principal); I10 Essential (primary) hypertension; I71.4 Abdominal aortic aneurysm, without rupture | CPT/HCPCS: 99212 ==

== ENCOUNTER 2022-11-11 07:15 | Outpatient (REF) | payer MEDICARE, OTHER, SELFPAY ==
--- NOTE | ~2022-11-11 | CT_ITS ---
EXAMINATION: CT CHEST WITHOUT CONTRAST CLINICAL INFORMATION: Lung cancer COMPARISON: 05/04/2022 TECHNIQUE: Multidetector volumetric CT imaging of the chest was done. Axial MIP volume rendering provided. Sagittal and coronal reformatted images were obtained. This CT examination was performed using dose optimization techniques as appropriate, variously including the following: *Automated exposure control *Adjustment of mA and/or kV according to patient size (this includes techniques or standardized protocols for targeted exams where dose is matched to indication/reason for exam; i.e. extremities or head) *Use of iterative reconstruction technique DLP: 177 FINDINGS: LUNGS: Status post right upper lobectomy. New centrilobular nodules in the anterior aspect of the left upper lobe (5:264), the largest measures up to 4 mm (5:253),. Background mild emphysema. MEDIASTINUM: No mediastinal adenopathy. Dense coronary artery atherosclerotic calcifications. PLEURA: Trace right pleural effusion. AXILLA: No lymphadenopathy. UPPER ABDOMEN: Small hiatal hernia. OSSEOUS STRUCTURES/SOFT TISSUES: Unremarkable. CT/CT chest wo IV con IMPRESSION: 1. New centrilobular nodules in the anterior aspect of the left upper lobe, the largest measures up to 4 mm. Differential considerations include infectious/inflammatory etiologies, although neoplastic disease cannot be excluded. Follow-up per oncologic protocol. 2. Trace right pleural effusion.
== END 2022-11-11 07:16 | disposition home or self-care (01) ==
LOC: HO.CT 07:15
PROVIDERS: Visit Provider Surgery
DX: C34.91 Malignant neoplasm of unspecified part of right bronchus or lung (principal)
CPT/HCPCS: 71250

== ENCOUNTER → 2022-11-18 08:53 | Outpatient (BNVA) | payer MEDICARE, OTHER, SELFPAY | PROVIDERS: PCP Internal Medicine; Visit Provider Surgery | DX: C34.91 Malignant neoplasm of unspecified part of right bronchus or lung (principal); R91.1 Solitary pulmonary nodule; F17.200 Nicotine dependence, unspecified, uncomplicated | CPT/HCPCS: 99212 ==

== ENCOUNTER → 2022-12-22 08:44 | Outpatient (BNVA) | payer MEDICARE, OTHER, SELFPAY | PROVIDERS: PCP Internal Medicine; Referring Provider Internal Medicine; Visit Provider Internal Medicine | DX: I25.10 Atherosclerotic heart disease of native coronary artery without angina pectoris (principal); I10 Essential (primary) hypertension; I71.40 Abdominal aortic aneurysm, without rupture, unspecified | CPT/HCPCS: 93005; 99212 ==

== ENCOUNTER 2023-01-10 07:18 | Outpatient (REF) | payer MEDICARE, OTHER, SELFPAY ==
[2023-01-10 07:26] LABS: MANUAL DIFF FLAG NO
[2023-01-10 07:34] LABS: Basophils Absolute Auto 0.1 X10*3/uL (0.0-0.2); Basophils Percent Auto 0.6 % (0-2); Eosinophils Absolute Auto 0.2 X10*3/uL (0.0-0.4); Eosinophils Percent Auto 1.9 % (0-4); Hematocrit 44.2 % (42.0-52.0); Imm Gran Abs Auto 0.03 X10*3/uL (0.00-0.03); Imm Gran Pct Auto 0.3 % (0.0-0.4); Lymphocytes Percent Auto 10.8 % (20-40); Mean Corpuscular HGB Conc 33.9 g/dl (31.0-36.0); Mean Corpuscular Volume 91.3 fL (80.0-98.0); Mean Platelet Volume 8.7 fL (9.4-12.4); Monocytes Absolute Auto 1.2 X10*3/uL (0.1-1.2); Monocytes Percent Auto 13.4 % (2-11); Neutrophils Absolute Auto 6.6 x10*3/uL (2.0-8.3); Platelet Count 278 X10*3/uL (160-400); Red Blood Count 4.84 X10*6/uL (4.60-5.80)
[2023-01-10 07:52] LABS: Appearance Urine Clear; Color Urine Yellow; Glucose Urine UA Negative (Negative); Leukocyte Esterase Urine Negative (Negative); Nitrite Urine Negative (Negative); PH 7.5 (5.0-9.0); Urine Blood Negative (Negative); Urine Ketones Negative (Negative); Urine Protein Negative (Neg-Trace)
[2023-01-10 08:22] LABS: Alanine Aminotransferase 19 U/L (0-40); Albumin Level 4.4 g/dL (3.5-5.0); Alkaline Phosphatase 98 U/L (39-117); Anion Gap 13 (12-20); Aspartate Amino Transferase 17 U/L (5-37); Bilirubin Total 0.6 mg/dL (0.0-1.0); Blood Urea Nitrogen 19 mg/dL (9-16); Calcium 9.8 mg/dL (8.4-10.2); Carbon Dioxide 30 mmol/L (22-29); Chloride 100 mmol/L (96-108); Cholesterol 129 mg/dL; Estimated Glomerular Filt Rate 59; Glucose Fasting 122 mg/dL (60-99); HDL Cholesterol 40 mg/dL; LDL Cholesterol Calculated 62 mg/dl; Sodium 138 mmol/L (135-145); Total Protein 7.4 g/dL (6.5-8.0); Triglycerides 135 mg/dL
[2023-01-10 08:41] LABS: TSH reflex Free T4 1.15 uIU/mL (0.32-4.0)
== END 2023-01-10 07:19 | disposition home or self-care (01) ==
LOC: HO.LAB 07:18
PROVIDERS: PCP Internal Medicine; Visit Provider Internal Medicine
DX: E78.00 Pure hypercholesterolemia, unspecified (principal); E55.9 Vitamin D deficiency, unspecified; I10 Essential (primary) hypertension
CPT/HCPCS: 36415; 80053; 80061; 81003; 82306; 84443; 85025

== ENCOUNTER 2023-05-15 07:47 | Outpatient (REF) | payer MEDICARE, OTHER, SELFPAY ==
--- NOTE | ~2023-05-15 | CT_ITS ---
EXAMINATION: CT ANGIOGRAM ABDOMEN AND PELVIS CLINICAL INFORMATION: Abdominal aortic aneurysm treated with aortobiiliac stent graft. COMPARISON: CT angiogram abdomen and pelvis 05/27/2022, CT of the chest, abdomen and pelvis 08/23/[address] angiogram of the abdomen 06/07/2021. TECHNIQUE: Multiple axial images were obtained through the abdomen and pelvis before and following the administration of 80 mL of Omnipaque 350 intravenous contrast. Images were reviewed on a dedicated 3-D workstation. This CT examination was performed using dose optimization techniques as appropriate, variously including the following: *Automated exposure control. *Adjustment of mA and/or kV according to patient size (this includes techniques or standardized protocols for targeted exams where dose is matched to indication/reason for exam; i.e. extremities or head). *Use of iterative reconstruction technique. DLP: 297 mGy-cm VASCULAR FINDINGS: Once again seen is an endovascular repair of an infrarenal abdominal aortic aneurysm with an aortobiiliac graft. The [place] aneurysm sac continues to decrease in size. Currently, maximal sac size is 5.3 x 4.5 cm (6:335) whereas previously this was 5.7 x 4.7 cm (prior 5:39). Again seen is a small thin linear contrast collection which appears to be outside endograft (6:390-430) which is stable compared to the prior exam. Both common iliac arteries are stented and widely patent. The celiac artery, SMA, and bilateral renal arteries are patent. The origin of the CLAUDIA is excluded, however, the CLAUDIA continues to fill via retrograde collaterals from the SMA. FINDINGS: LOWER CHEST: The previously seen new right-sided pleural effusion has decreased in size from [id number]. No lung masses are seen. LIVER: Normal in size and attenuation. No focal lesions. GALLBLADDER AND BILE DUCTS: The gallbladder is normal. No intrahepatic or extrahepatic biliary ductal dilatation. SPLEEN: Normal in size and attenuation. PANCREAS: Unremarkable. ADRENAL GLANDS: Unremarkable. RIGHT KIDNEY: The right kidney is normal. There is no hydronephrosis or hydroureter.A benign tiny right-sided 0.6 cm Bosniak class I renal cyst is noted which requires no additional imaging or follow up. No solid renal masses are seen. LEFT KIDNEY: The left kidney is normal. There is no hydronephrosis or hydroureter. LYMPH NODES: There are some shotty retroperitoneal lymph nodes present but no lymphadenopathy in the abdomen or pelvis. GASTROINTESTINAL TRACT: The stomach, small, and large bowel are normal in course and caliber. Colonic diverticulosis is noted without diverticulitis. The appendix is normal. URINARY BLADDER: The bladder is normal. PELVIC ORGANS: There is mild BPH. There is no intraperitoneal free air or fluid. OSSEOUS STRUCTURES: Again seen is degenerative changes in the spine most marked at L4-L5 and L5-S1. CT/CT angio abdomen pelvis IMPRESSION: Status post aortobiiliac repair of AAA. The aortic sac size continues to decrease in size significantly without evidence of a convincing endoleak. Fleischner guidelines were followed.
[2023-05-15] MEDS: iohexoL 350 MG/ML 100 ML INFUS..BTL 80 ML IV (08:36)
[2023-05-16 08:58] LABS: Creatinine POC 0.8 mg/dL (0.5-1.4); GFR POC > 60
== END 2023-05-15 07:48 | disposition home or self-care (01) ==
LOC: HO.CT 07:47
PROVIDERS: PCP Internal Medicine; Visit Provider Surgery Vascular Surgery
DX: I71.40 Abdominal aortic aneurysm, without rupture, unspecified (principal)
CPT/HCPCS: 74174; 82565; Q9967

== ENCOUNTER 2023-05-25 13:43 | Outpatient (REF) | payer MEDICARE, OTHER, SELFPAY ==
--- NOTE | ~2023-05-25 | CT_ITS ---
EXAMINATION: CT CHEST WITHOUT CONTRAST CLINICAL INFORMATION: Malignant neoplasm of unspecified part of right bronchus or lung. COMPARISON: 11/11/2022. TECHNIQUE: Multidetector volumetric CT imaging of the chest was done. Axial MIP volume rendering provided. Sagittal and coronal reformatted images were obtained. This CT examination was performed using dose optimization techniques as appropriate, variously including the following: *Automated exposure control *Adjustment of mA and/or kV according to patient size (this includes techniques or standardized protocols for targeted exams where dose is matched to indication/reason for exam; i.e. extremities or head) *Use of iterative reconstruction technique DLP: 137 mGy-cm FINDINGS: LUNGS: Again seen are changes of right upper lobectomy. Background emphysematous changes are again seen. The previously seen new tree-in-bud type nodules in the left upper lobe (prior 5:264) have resolved. No new or worrisome lung nodules are seen. A few scattered micronodules measuring 2 mm or less are present (for example in the left lower lobe 5:285). MEDIASTINUM: The mediastinum is shifted to the right after right upper lobectomy. Heart size is normal. No mediastinal or hilar lymphadenopathy. CORONARY ARTERY CALCIFICATION: Moderate. PLEURA: A small right pleural effusion is again noted, unchanged. No left pleural effusion. AXILLA: No lymphadenopathy. UPPER ABDOMEN: Unremarkable. The adrenal glands are only partially imaged, but no adrenal masses are seen OSSEOUS STRUCTURES: There is a compression fracture of T7 with anterior wedging, unchanged from prior. CT/CT chest wo IV con IMPRESSION: 1. Status post right upper lobectomy with no evidence of recurrent disease. 2. Previously seen tree-in-bud type nodules in the left upper lobe have resolved. 3. Unchanged small right pleural effusion. 4. Unchanged compression fracture T7. Fleischner guidelines were followed.
== END 2023-05-25 13:44 | disposition home or self-care (01) ==
LOC: HO.CT 13:43
PROVIDERS: PCP Internal Medicine; Visit Provider Surgery
DX: C34.91 Malignant neoplasm of unspecified part of right bronchus or lung (principal)
CPT/HCPCS: 71250

== ENCOUNTER 2023-06-09 09:10 | Outpatient (AMB) | payer MEDICARE, OTHER, SELFPAY ==
[2023-06-09 09:18] VITALS: BP 120/74; PULSE 96; O2SAT 92; BMI 24.0
--- NOTE | 2023-06-09 09:18 | MHC.OFFVIS ---
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 Since that time restaging PET scan showed no distant disease and decreased avidity and size of the right upper lobe lung cancer and mediastinal lymph nodes. Sampling of the mediastinal lymph nodes showed no evidence of residual malignancy there. On bronchoscopy this did appear to be resectable given that the orifice of the right upper lobe is clear of disease.? With that on mind he underwent a Davinci right upper lobectomy and mediastinal lymphadenectomy on 10/13/2021.? He did quite well after that operation and is here now for his 1st six-month surveillance visit.? CT scan of the chest was done in March of 2022 reviewed interpreted by me directly which shows no evidence of recurrence or new disease.? A follow-up [address] scan of the chest was then done on 11/11/2022 which again was reviewed interpreted by me directly showing no evidence of recurrence or new disease.? There is no mediastinal lymphadenopathy and no pleural fluid.? There are 4 mm and less pulmonary nodules in the left upper lobe somewhat centrally of minimal concern but will be followed up on. Another six-month follow-up CT scan was done on 05/25/2023 which shows no evidence of recurrence or new disease. There is no new nodules and no mediastinal lymphadenopathy. This was compared and interpreted by me directly. He denies chest pain, cough, hemoptysis, fevers, chills, unintentional weight loss, or any new neurologic symptoms.? Other than above, 12 point review of systems was done and documented separately in the office chart with detailed social and family history. ? ? [facility] Medical History Abdominal aortic aneurysm without rupture (~2018) Atherosclerotic cardiovascular disease Benign essential hypertension COPD (chronic obstructive pulmonary disease) Other and unspecified hyperlipidemia Overweight (BMI 25.0-29.9) Primary squamous cell carcinoma of right lung (~2020) Pulmonary nodule Pure hypercholesterolemia Smoker Tubular adenoma of colon (~2015) Surgical History History of AAA (abdominal aortic aneurysm) repair (~10/14/19) History of basal cell carcinoma excision (~04/02/02) History of bronchoscopy (~03/04/21) History of colonoscopy (~05/12/20) History of lobectomy of lung (~10/13/21) History of lymph node biopsy (~03/29/21) Family History Father Alzheimers disease Mother Brain aneurysm Brother No problems noted. Brother Brain tumor Social History Housing: House Alcohol intake: current Alcohol intake frequency: a few times a week Alcohol type: beer Patient Tobacco Use Status: Former Tobacco user e-Cigarette/Vaping Use: Never Used Second Hand Smoke Exposure: Yes service: No Current occupational status: retired Cognitive needs: No Hearing needs: No Vision needs: Yes Physical Exam Vital Signs: Last Vital Signs Pulse 96 06/09/23 09:18 BP 120/74 06/09/23 09:18 Pulse Ox 92 06/09/23 09:18 BMI result Body Mass Index 24.0 General: No acute distress HEENT: Moist mucous membranes, normocephalic, pupils equal round and reactive to light. Neck: No thyromegaly, supple, no JVD Lymph: No cervical, supraclavicular, or other lymphadenopathy Chest: No chest wall abnormalities or deformities chest wounds are well healed Heart: Regular rate and rhythm Lungs: Clear to auscultation bilaterally Abdomen: Soft, nontender, normal bowel sounds Extremities: No edema, cyanosis, or clubbing. Full range of motion Neuro: Grossly intact, alert and oriented x3, and nonfocal Skin: Warm and dry no rashes Affect: Normal Assessment & Plan Assessment & Plan (1) Primary squamous cell carcinoma of right lung: Onset Date: ~2020 Comment: (SCC of RUL - cT2N2, stage IIIA, dx 02/2021 - s/pconcurrent chemoradiotherapy & RUL Lobectomy) Code(s): C34.91 - Malignant neoplasm of unspecified part of right bronchus or lung Plan: 73-year-old male status post Davinci right upper lobectomy after neoadjuvant chemotherapy and radiation for a 3 a lung cancer. Clinically doing quite well. CT scan was explained to him in detail and shows no evidence of recurrence or new disease. Will continue on the postoperative surveillance protocol which is a CT scan every 6 months for the 1st 2 years followed by yearly for 3 years after that unless there are any new changes. He understands and agrees with that plan. Orders: Orders CT chest wo IV con 6 Months C34.91 - Malignant neoplasm of unspecified part of right bronchus or lung Quality Reporting (2019) Adult ([facility] 138/12/14/68) Smoking risk assessment performed?: Yes Patient Tobacco Use Status: Former Tobacco user Coding Level of Care Code Est Pt Level 4 (42576) Diagnoses Primary squamous cell carcinoma of right lung C34.91
== END 2023-06-09 09:41 | disposition home or self-care (01) ==
PROVIDERS: PCP Internal Medicine; Visit Provider Surgery
DX: C34.91 Malignant neoplasm of unspecified part of right bronchus or lung (principal)

== ENCOUNTER → 2023-06-09 09:10 | Outpatient (BNVA) | payer MEDICARE, OTHER, SELFPAY | PROVIDERS: PCP Internal Medicine; Visit Provider Surgery | DX: C34.91 Malignant neoplasm of unspecified part of right bronchus or lung (principal) | CPT/HCPCS: 99212 ==

== ENCOUNTER 2023-06-13 11:21 | Outpatient (AMB) | payer MEDICARE, OTHER, SELFPAY ==
--- NOTE | 2023-06-13 11:18 | MHC.OFFVIS ---
Intake Vital Signs 06/13/23 11:19 Height 5 ft 6 in Weight 149 lb BMI 24.0 BP 114/78 Blood Pressure Location Lt brachial Position Sitting Pulse 108 H Pulse Source Pulse Oximeter Pulse Oximetry (%) 93 Oxygen Delivery Method Room Air Intake Visit Reasons: follow up 05/15 AAA/CT scan Intake Note: Pt presents to the office today for a follow up AAA/CT scan. Pt states he has been feeling overall well and has no complaints. Allergies No Known Allergies [No Known Allergies*] Allergy (Verified 06/13/23 11:19) HPI follow up 05/15 AAA/CT scan HPI Details Very pleasant 73-year-old gentleman presents for surveillance follow-up regarding his aortic and iliac aneurysms. He has undergone endovascular repair nearly 6 4 years prior. He has no interval issues. He appears to be doing extremely well. [place] [facility] [place]. He now presents for her routine CT scan surveillance follow-up [facility] Medical History Abdominal aortic aneurysm without rupture (~2018) Atherosclerotic cardiovascular disease Benign essential hypertension COPD (chronic obstructive pulmonary disease) Other and unspecified hyperlipidemia Overweight (BMI 25.0-29.9) Primary squamous cell carcinoma of right lung (~2020) Pulmonary nodule Pure hypercholesterolemia Smoker Tubular adenoma of colon (~2015) Surgical History History of AAA (abdominal aortic aneurysm) repair (~10/14/19) History of basal cell carcinoma excision (~04/02/02) History of bronchoscopy (~03/04/21) History of colonoscopy (~05/12/20) History of lobectomy of lung (~10/13/21) History of lymph node biopsy (~03/29/21) Family History Father Alzheimers disease Mother Brain aneurysm Brother No problems noted. Brother Brain tumor Social History Housing: House Alcohol intake: current Alcohol intake frequency: a few times a week Alcohol type: beer Patient Tobacco Use Status: Former Tobacco user e-Cigarette/Vaping Use: Never Used Second Hand Smoke Exposure: Yes service: No Current occupational status: retired Cognitive needs: No Hearing needs: No Vision needs: Yes Review of Systems Const All systems reviewed & are unremarkable except as noted in HPI and below Reports no additional complaints ENT Reports Normal hearing present Card Denies chest pain, Denies chest pain at rest, Denies chest pain with activity and Denies pedal edema Resp Denies cough GI Denies abdominal pain Musc Denies abnormal gait, Denies muscle cramps and Denies radiating pain into limb Skin/Breast Denies skin ulcer and Denies wounds Neuro Reports Normal hearing present and Denies abnormal gait Psych Reports no additional complaints Physical Exam Vital Signs: Last Vital Signs Pulse 108 H 06/13/23 11:19 BP 114/78 06/13/23 11:19 Pulse Ox 93 06/13/23 11:19 Oxygen Delivery Method Room Air 06/13/23 11:19 BMI result Body Mass Index 24.0 Const General: cooperative, healthy appearing and comfortable Orientation/consciousness: oriented to person, oriented to place and oriented to time HEENT Head: Yes normal to inspection Neck Neck: Yes normal visual inspection Carotids: no bruits Chest Chest palpation & inspection: normal inspection of the chest Resp Effort & Inspection: normal respiratory effort and able to speak in complete sentences Auscultation: clear to auscultation bilaterally, no crackles, no rales, no rhonchi and no wheezes Cardio Rate: regular rate Rhythm: regular rhythm Heart sounds: S1 normal heart sound present and S2 normal heart sound present Bruits: no carotid bruits Peripheral pulses: Peripheral pulses 2+ throughout GI Inspection: Yes normal to inspection Skin Wounds: no wounds Hair: normal Neuro General: oriented to person, oriented to place and oriented to time Cranial nerves: Yes CN's II-XII intact bilaterally and Yes Normal hearing present Cognition (Neuro): normal cognition Motor exam (neuro): 5/5 motor strength present throughout Extrem Other: venous exam: No significant superficial varicosities or spider telangiectasias, minimal edema General: No clubbing, No cyanosis and No edema Psych Appearance: grossly normal Mental Status: mental status grossly normal Speech and movement: Normal speech and movement present Results Reviewed Results Reviewed: CT scan dated 05/15/2023 demonstrates stable endovascular repair with no evidence of endoleak. Written report and images were reviewed Assessment & Plan Assessment & Plan (1) Abdominal aortic aneurysm without rupture: Onset Date: ~2018 Comment: (AAA s/p endovascular aortic aneurysm repair with Endologix graft - 10/14/2019) Code(s): I71.4 - Abdominal aortic aneurysm, without rupture Plan: In short patient has stable aortic endograft on CT scan. We have discussed the pathophysiology of aortic aneurysms and the risk of ruptures. We have discussed rupture risk based on size. the patient is scheduled for surveillance follow-up in approximately [address] scan. Thank you for allowing us to participate in the care of this patient Orders: Orders Blood Urea Nitrogen 364 Days I71.4 - Abdominal aortic aneurysm, without rupture Creatinine 364 Days I71.4 - Abdominal aortic aneurysm, without rupture CT angio abdomen pelvis 364 Days I71.4 - Abdominal aortic aneurysm, without rupture Quality Reporting (2019) Adult ([facility] 138/12/14/68) Smoking risk assessment performed?: Yes Patient Tobacco Use Status: Former Tobacco user Coding Level of Care Code Est Pt Level 4 (43577) Diagnoses Abdominal aortic aneurysm without rupture I71.4
[2023-06-13 11:19] VITALS: BP 114/78; PULSE 108; O2SAT 93; BMI 24.0
== END 2023-06-13 11:39 | disposition home or self-care (01) ==
PROVIDERS: PCP Internal Medicine; Visit Provider Surgery Vascular Surgery
DX: I71.40 Abdominal aortic aneurysm, without rupture, unspecified (principal); Z95.820 Peripheral vascular angioplasty status with implants and grafts
CPT/HCPCS: 99213

== ENCOUNTER → 2023-06-13 11:21 | Outpatient (BNVA) | payer MEDICARE, OTHER, SELFPAY | PROVIDERS: PCP Internal Medicine; Visit Provider Surgery Vascular Surgery | DX: I71.40 Abdominal aortic aneurysm, without rupture, unspecified (principal) | CPT/HCPCS: 99212 ==

== ENCOUNTER 2023-07-06 06:17 | Outpatient (REF) | payer MEDICARE, OTHER, SELFPAY ==
[2023-07-06 07:15] LABS: Alanine Aminotransferase 17 U/L (0-40); Albumin Level 4.5 g/dL (3.5-5.0); Alkaline Phosphatase 104 U/L (39-117); Anion Gap 13 (12-20); Aspartate Amino Transferase 18 U/L (5-37); Bilirubin Total 0.5 mg/dL (0.0-1.0); Blood Urea Nitrogen 16 mg/dL (9-16); Carbon Dioxide 30 mmol/L (22-29); Chloride 96 mmol/L (96-108); Cholesterol 123 mg/dL (<200); Estimated Glomerular Filt Rate > 60; Glucose Fasting 118 mg/dL (60-99); HDL Cholesterol 48 mg/dL (>40); LDL Cholesterol Calculated 61 mg/dL (<100); Potassium 4.4 mmol/L (3.3-5.1); Sodium 135 mmol/L (135-145); Total Protein 7.7 g/dL (6.5-8.0); Triglycerides 73 mg/dL (<150)
== END 2023-07-06 06:18 | disposition home or self-care (01) ==
LOC: HO.LAB 06:17
PROVIDERS: PCP Internal Medicine; Visit Provider Internal Medicine
DX: E78.00 Pure hypercholesterolemia, unspecified (principal)
CPT/HCPCS: 36415; 80053; 80061

== ENCOUNTER 2023-07-06 09:44 | Outpatient (AMB) | payer MEDICARE, OTHER, SELFPAY ==
--- NOTE | 2023-07-06 09:46 | MHC.PC.OV ---
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 Accompanied by: Self / Same As Patient Allergies No Known Allergies [No Known Allergies*] Allergy (Verified 07/06/23 10:38) Medication List - Last Reconciled 07/06/23 by Rafael Coleman MD aspirin 81 mg PO DAILY atorvastatin 80 mg PO DAILY hydrochlorothiazide 12.5 mg PO QAM losartan 100 mg PO DAILY Tobacco use date assessed: 07/06/23 Fall risk assessment: No Falls in past year Last assessed Fall Risk: 07/06/23 Dental Screening Dental Screen Date: 07/06/23 Did you have a dental visit in the last 12 months?: Yes Did you have a dental problem in the last 6 months where you did not have access to dental care?: No Was dental information given to patient?: Patient has dentist HPI lung cancer, hyperlipidemia HPI Details Patient comes in today for his follow up visit States that he feels okay He denies any headaches or dizziness Denies any chest pains, no SOB No nausea/vomiting, no abdominal pain No change in bowel habits noted Had his follow up labs done earlier this morning - to discuss his results He was seen for follow up by thoracic surgery and vascular surgery recently - has been advised that he is currently doing well He is awaiting scheduling for his repeat CT angiogram of the abdomen and pelvis for follow up of his aotic aneurysm and was advised by thoracic surgery that he will be scheduled for a follow up chest CT in 6 months for continuing surveillance for his lung cancer He is scheduled to see cardiology next week for follow up [facility] Medical History Vitamin D deficiency Smoker Pure hypercholesterolemia Tubular adenoma of colon (~2015) Primary squamous cell carcinoma of right lung (~2020) Pulmonary nodule Other and unspecified hyperlipidemia Atherosclerotic cardiovascular disease Overweight (BMI 25.0-29.9) Abdominal aortic aneurysm without rupture (~2018) Benign essential hypertension COPD (chronic obstructive pulmonary disease) Surgical History History of lobectomy of lung (~12/22/21) History of lymph node biopsy (~03/29/21) History of basal cell carcinoma excision (~04/02/02) History of bronchoscopy (~03/04/21) History of AAA (abdominal aortic aneurysm) repair (~10/14/19) History of colonoscopy (~05/12/20) Family History Father Alzheimers disease Mother Brain aneurysm Brother No problems noted. Brother Brain tumor Social History Housing: House Alcohol intake: current Alcohol intake frequency: a few times a week Alcohol type: beer Patient Tobacco Use Status: Former Tobacco user e-Cigarette/Vaping Use: Never Used Second Hand Smoke Exposure: Yes service: No Current occupational status: retired Cognitive needs: No Hearing needs: No Vision needs: Yes Questionnaire PHQ-9 Over the last 2 weeks, how often have you been bothered by any of the following problems? 1. Little interest or pleasure in doing things: not at all 2. Feeling down, depressed, or hopeless: not at all 3. Trouble falling or staying asleep, or sleeping too much: not at all 4. Feeling tired or having little energy: not at all 5. Poor appetite or overeating: not at all 6. Feeling bad about yourself - or that you are a failure or have let yourself or your family down: not at all 7. Trouble concentrating on things, such as reading the newspaper or watching television: not at all 8. Moving or speaking so slowly that other people could have noticed. Or the opposite - being so fidgety or restless that you have been moving around a lot more than usual: not at all 9. Thoughts that you would be better off or of hurting yourself in some way: not at all Total score: 0 Depression Screening Interpretation: Negative 08145 - PHQ-9 Billing: Yes Source: Developed by Drs. Jose F Molina, Lelo Tapia, Sonny Gardner and colleagues, with an educational chano from [employer]. Thrive Questionnaire Date Thrive assessed: 07/06/23 I am a: Patient What is your living situation today?: I have a steady place to live Within the past 12 months, did the food you bought not last and you didn't have the money to get more?: Never true Within the past 12 months, did you worry whether your food would run out before you got money to buy more?: Never true Do you have trouble paying for medicines?: No Do you have trouble getting transportation to medical appointments?: No Do you have trouble paying your heating and electricity bill?: No Do you have trouble taking care of your child, family member or friend?: No Do you have trouble with day-to-day activities such as bathing, preparing meals, shopping, managing finances, etc.?: No Are you currently unemployed and looking for a job?: No Are you interested in more education?: No Please select the resources that you would like help with: None Currently or been in a relationship where the following occur: no concerns reported AUDIT C Alcohol Use Questionnaire (AUDIT-C) 1. How often do you have a drink containing alcohol?: Never 3. How often do you have six or more drinks on one occasion?: Never Total Score: 0 Score Reviewed/Action Taken: Yes FAY-7 AMB Questionnaire FAY-7 Date FAY - 7 assessed: 07/06/23 Feeling nervous, anxious, or on edge: 0 = Not at all Not being able to stop or control worryin = Not at all Worrying too much about different things: 0 = Not at all Trouble relaxin = Not at all Being so restless that it is hard to sit still: 0 = Not at all Becoming easily annoyed or irritable: 0 = Not at all Feeling afraid as if something awful might happen: 0 = Not at all Total FAY-7 score (0-4 normal; 5-9 mild; 10-14 moderate; 15-21 severe): 0 Source: Developed by Drs. Jose F Molina, Lelo Tapia, Sonny Gardner and colleagues, with an educational chano from [employer]. Review of Systems Const Denies fatigue, Denies fever(s) and Denies headache(s) ENT Denies dysphagia, Denies dizziness, Denies otalgia, Denies headache(s), Denies odynophagia and Denies sore throat Card Denies chest pain, Denies palpitations and Denies dyspnea Resp Denies cough and Denies dyspnea GI Denies abdominal pain, Denies constipation, Denies dysphagia, Denies heartburn, Denies diarrhea, Denies nausea, Denies odynophagia and Denies vomiting Denies dysuria, Denies nocturia and Denies urinary frequency Musc Denies back pain and Denies arthralgias Neuro Denies dizziness and Denies headache(s) Endo Denies fatigue and Denies palpitations Physical exam (Primary Care) Vital Signs: Last Vital Signs Pulse 94 07/06/23 09:47 BP 122/80 07/06/23 09:47 Pulse Ox 94 07/06/23 09:47 Oxygen Delivery Method Room Air 07/06/23 09:47 BMI result Body Mass Index 24.2 Tobacco/Smoking Status: Tobacco use Status Tobacco use date assessed 07/06/23 07/06/23 09:51 Patient Tobacco Use Status Former Tobacco user 07/06/23 09:51 e-Cigarette/Vaping Use Never Used 07/06/23 09:51 PHQ-9: PHQ-9 Score PHQ-9: Total score 0 07/06/23 09:51 Depression Screening Interpretation: Negative Thrive Assessment: Date of Thrive Assessment Date Thrive assessed 07/06/23 07/06/23 09:51 Currently or been in a relationship where the following occur: no concerns reported Const General: no acute distress and alert HENMT Ears: TM's normal bilaterally and EAC's normal Throat: Yes posterior oropharynx normal and Yes tonsils normal (no TP congestion noted) Neck Neck: Yes no lymphadenopathy and Yes supple Resp Auscultation: clear to auscultation bilaterally, no rales and no wheezes Cardio Rate: regular rate Rhythm: regular rhythm Heart sounds: no murmurs GI Palpation (GI): Soft to palpation and nontender Auscultation: normal bowel sounds Extrem General: Yes no clubbing, cyanosis or edema Results Reviewed Results Reviewed: Laboratory Tests 07/06/23 06:35 Sodium 135 Potassium 4.4 Creatinine 0.95 Estimated GFR > 60 Fasting Glucose 118 H Calcium 10.0 AST 18 ALT 17 Triglycerides 73 Cholesterol 123 LDL Cholesterol, Calc 61 HDL Cholesterol 48 Assessment and Plan Assessment & Plan (1) Primary squamous cell carcinoma of right lung: Onset Date: ~2020 Comment: (SCC of RUL - cT2N2, stage IIIA, dx 02/2021 - s/pconcurrent chemoradiotherapy & RUL Lobectomy) Code(s): C34.91 - Malignant neoplasm of unspecified part of right bronchus or lung Plan: Patient completed his chemoradiation therapy (weekly Carboplatin + Taxol and radiation Tx) a couple of years ago (started on 05/04/2021 and completed on 06/14/2021) and underwent VATS with lobectomy, DaVinci right upper lobectomy and mediastinal lymphadenectomy with Dr. Petersen on 10/13/2021 Pathology revealed right upper lobe mass with fibrosis, necrosis, no viable tumor cells. Three benign perihilar lymph nodes, negative for carcinoma. Pathological tumor stage ypT0, ypN0. As he had complete molecular response to Tx, was advised that there is no need for further adjuvant therapies Repeat chest CT in April 2022 revealed interval right upper lobe resection with postsurgical changes, a partially loculated right pleural effusion, improvement in mediastinal lymphadenopathy and changes of emphysema. There are no new concerning findings 6 months follow up CTs done on 11/11/2022 and on 05/25/2023 also came out negative for disease recurrence; will have another follow up chest CT done in 6 months Follow up with oncology and with thoracic surgery as scheduled for continuing surveillance (2) Abdominal aortic aneurysm without rupture: Onset Date: ~2018 Comment: (AAA s/p endovascular aortic aneurysm repair with Endologix graft - 10/14/2019) Code(s): I71.4 - Abdominal aortic aneurysm, without rupture Plan: Stable Repeat CTA of the abdomen and pelvis done in May 2022 revealed findings of s/p aortoiiliac repair of AAA. The aortic sac size has decreased in size significantly without evidence of a convincing endoleak, and stable size of the excluded right common iliac artery aneurysm. Was seen by Dr. Charles for his vascular surgery follow up and was reassured of his negative findings He was seen again by Dr. Charles recently and is currently being scheduled for a repeat CT angio of the abdomen and pelvis for follow up Follow up with vascular surgery as scheduled for continuing surveillance (3) Benign essential hypertension: Code(s): I10 - Essential (primary) hypertension Plan: Reinforced low sodium diet - goal is systolic BP of 120 mm or less because of his AAA Continue Losartan 100 mg QD and HCTZ 12.5 mg QD (4) Atherosclerotic cardiovascular disease: Code(s): I25.10 - Atherosclerotic heart disease of redd[place] coronary artery without angina pectoris Plan: Continue low dose Aspirin 81 mg QD Follow up with cardiology as scheduled - has appt coming up next week with Dr. Elmore (5) Pure hypercholesterolemia: Code(s): E78.00 - Pure hypercholesterolemia, unspecified Plan: Results of his labs done earlier this morning reviewed and discussed with patient Reinforced low cholesterol diet Continue Atorvastatin 80 mg QD Will recheck his labs and fasting lipids in 6 months for follow up (6) COPD (chronic obstructive pulmonary disease): Comment: (COPD mild/stable, not requiring medication) Code(s): J44.9 - Chronic obstructive pulmonary disease, unspecified Qualifiers: COPD type: unspecified COPD Qualified Code(s): J44.9 - Chronic obstructive pulmonary disease, unspecified Plan: Stable - follow up with pulmonary (Dr. Friedman) as scheduled (7) Impaired fasting glucose: Code(s): R73.01 - Impaired fasting glucose Plan: Advised that his FBS was again elevated on his labs from this morning Relates that he ate some ice cream and desserts last night and that these may have something to do with his blood sugar Discussed low calorie/low carb diet Will recheck his FBS in 6 months for follow up; will also check his HgbA1c then for further evaluation (8) Vitamin D deficiency: Code(s): E55.9 - Vitamin D deficiency, unspecified Plan: Advised that his Vitamin D level dropped off from previous and was low on his labs back in December 2022 Will have him start taking Vitamin D3 2000 units QD - advised that he can get these OTC without Rx if his insurance will not cover the Rx we sent in for him Will recheck his Vitamin D level in 6 months for follow up Plan Follow up in 6 months Orders: Orders Hemoglobin A1c 6 Months R73.01 - Impaired fasting glucose TSH reflex Free T4 6 Months E78.00 - Pure hypercholesterolemia, unspecified Vitamin D 25-OH Total 6 Months E55.9 - Vitamin D deficiency, unspecified UA CC w/rflx Micro + Cult 6 Months R30.0 - Dysuria Comprehensive [place]. Panel Fast 6 Months E78.00 - Pure hypercholesterolemia, unspecified Complete Blood Count Auto Diff 6 Months I10 - Essential (primary) hypertension Lipid Panel 6 Months E78.00 - Pure hypercholesterolemia, unspecified Medications: New cholecalciferol (vitamin D3) 50 mcg PO DAILY 90 days 90 caps 3RF E55.9 - Vitamin D deficiency, unspecified Coding Level of Care Code Est Pt Level 4 (75478) Diagnoses Primary squamous cell carcinoma of right lung C34.91 Abdominal aortic aneurysm without rupture I71.4 Benign essential hypertension I10 Atherosclerotic cardiovascular disease I25.10 Pure hypercholesterolemia E78.00 Chronic obstructive pulmonary disease, unspecified COPD type J44.9 COPD type: unspecified COPD Impaired fasting glucose R73.01 Vitamin D deficiency E55.9
[2023-07-06 09:47] VITALS: BP 122/80; PULSE 94; O2SAT 94; BMI 24.2
== END 2023-07-06 10:45 | disposition home or self-care (01) ==
PROVIDERS: PCP Internal Medicine; Visit Provider Internal Medicine
DX: C34.91 Malignant neoplasm of unspecified part of right bronchus or lung (principal); I71.40 Abdominal aortic aneurysm, without rupture, unspecified; I10 Essential (primary) hypertension; J44.9 Chronic obstructive pulmonary disease, unspecified; I25.10 Atherosclerotic heart disease of native coronary artery without angina pectoris; E78.00 Pure hypercholesterolemia, unspecified; R73.01 Impaired fasting glucose; E55.9 Vitamin D deficiency, unspecified
CPT/HCPCS: 99214

== ENCOUNTER 2023-07-10 09:37 | Outpatient (AMB) | payer MEDICARE, OTHER, SELFPAY ==
--- NOTE | 2023-07-10 09:40 | A.OFFVIS_ITS ---
Intake Vital Signs 07/10/23 09:41 Height 5 ft 6 in Weight 153 lb 0.013 oz BMI 24.7 BP 112/68 Blood Pressure Location Lt brachial Position Sitting Pulse 94 Intake Visit Reasons: 6 mth f/up Intake Note: 6 month follow up [employer] Required: No Accompanied by: Self / Same As Patient Allergies No Known Allergies [No Known Allergies*] Allergy (Verified 07/10/23 09:43) Medication List - Last Reconciled 07/10/23 by Aidan Elmore MD aspirin 81 mg PO DAILY atorvastatin 80 mg PO DAILY cholecalciferol (vitamin D3) 50 mcg PO DAILY 90 days hydrochlorothiazide 12.5 mg PO QAM losartan 100 mg PO DAILY HPI HPI Comments History of Present Illness Details Mateus returns for follow-up regarding vascular disease. Overall, he is doing fine. No specific complaints like angina. With moderate to severe activity, he may feel short of breath but he has been that way for a while. Appropriate medications overall. [facility] Medical History Vitamin D deficiency Smoker Pure hypercholesterolemia Tubular adenoma of colon (~2015) Primary squamous cell carcinoma of right lung (~2020) Pulmonary nodule Other and unspecified hyperlipidemia Atherosclerotic cardiovascular disease Overweight (BMI 25.0-29.9) Abdominal aortic aneurysm without rupture (~2018) Benign essential hypertension COPD (chronic obstructive pulmonary disease) Surgical History History of lobectomy of lung (~10/13/21) History of lymph node biopsy (~03/29/21) History of basal cell carcinoma excision (~04/02/02) History of bronchoscopy (~03/04/21) History of AAA (abdominal aortic aneurysm) repair (~10/14/19) History of colonoscopy (~05/12/20) Family History Father Alzheimers disease Mother Brain aneurysm Brother No problems noted. Brother Brain tumor Social History Housing: House Alcohol intake: current Alcohol intake frequency: a few times a week Alcohol type: beer Patient Tobacco Use Status: Former Tobacco user e-Cigarette/Vaping Use: Never Used Second Hand Smoke Exposure: Yes service: No Current occupational status: retired Cognitive needs: No Hearing needs: No Vision needs: Yes Review of Systems Const Denies weakness ENT Denies dizziness Card Denies chest pain, Denies chest pain with activity, Denies syncope, Denies rapid heart rate, Denies pedal edema, Denies edema, Denies leg edema, Denies lightheadedness, Denies palpitations, Denies dyspnea, Denies dyspnea on exertion and Denies orthopnea Resp Denies cough, Denies dyspnea and Denies dyspnea on exertion GI Denies hematochezia and Denies change in stool character Musc Denies abnormal gait, Denies muscle cramps, Denies muscle weakness, Denies numbness, Denies radiating pain into limb and Denies tingling Neuro Denies abnormal gait, Denies dizziness, Denies syncope, Denies numbness, Denies tingling and Denies weakness Endo Denies palpitations Physical Exam Vital Signs: Last Vital Signs Pulse 94 07/10/23 09:41 BP 112/68 07/10/23 09:41 BMI result Body Mass Index 24.7 Const General: comfortable and no acute distress Orientation/consciousness: patient oriented x3 HEENT Other: Unremarkable Head: Yes normal to inspection Neck Neck: Yes normal visual inspection Chest Chest palpation & inspection: normal inspection of the chest Resp Auscultation: clear to auscultation bilaterally Cardio Palpation: normal PMI Heart sounds: S1 normal heart sound present, S2 normal heart sound present, no gallops, no murmurs and no rubs GI Palpation (GI): Soft to palpation Back/Spine/Pelvis Other: unremarkable Skin General skin exam: no rashes or lesions noted Neuro General: patient oriented x3 Extrem General: Yes normal to inspection Psych Mental Status: mental status grossly normal Assessment & Plan Assessment & Plan (1) Atherosclerotic cardiovascular disease: Code(s): I25.10 - Atherosclerotic heart disease of [place] coronary artery without angina pectoris Plan: Cardiac studies reviewed. Chest CT scan shows coronary artery calcifications. Myocardial perfusion imaging 2018-normal perfusion, gated LVEF 71%. Echocardiogram, LVEF 60-65%. Basal inferior hypokinesis. Mild aortic valve calcification. As it has been a few years since he had the last stress test and considering the fact that he has numerous cardiovascular risk factors including established vascular disease, we can repeat a stress perfusion imaging. Otherwise, continue aspirin, statins. Lipids well controlled. (2) Essential hypertension: Code(s): I10 - Essential (primary) hypertension Plan: On Losartan and Hydrochlorothiazide. Seems stable. (3) Abdominal aortic aneurysm without rupture: Onset Date: ~2018 Comment: (AAA s/p endovascular aortic aneurysm repair with Endologix graft - 10/14/2019) Code(s): I71.4 - Abdominal aortic aneurysm, without rupture Plan: Status post endovascular repair. Orders: Orders CA stress test Today I25.10 - Atherosclerotic heart disease of [place] coronary artery without angina pectoris, R07.2 - Precordial pain NM cardiolite stress test Today I25.10 - Atherosclerotic heart disease of [place] coronary artery without angina pectoris, R07.2 - Precordial pain Quality Reporting (2019) Adult ([facility] ) Smoking risk assessment performed?: Yes Patient Tobacco Use Status: Former Tobacco user Coding Level of Care Code Est Pt Level 4 (99655) Diagnoses Atherosclerotic cardiovascular disease I25.10 Essential hypertension I10 Abdominal aortic aneurysm without rupture I71.4
[2023-07-10 09:41] VITALS: BP 112/68; PULSE 94; BMI 24.7
== END 2023-07-10 09:54 | disposition home or self-care (01) ==
PROVIDERS: PCP Internal Medicine; Referring Provider Internal Medicine; Visit Provider Internal Medicine
DX: I25.10 Atherosclerotic heart disease of native coronary artery without angina pectoris (principal); I10 Essential (primary) hypertension; I71.40 Abdominal aortic aneurysm, without rupture, unspecified
CPT/HCPCS: 99214

== ENCOUNTER → 2023-07-10 09:37 | Outpatient (BNVA) | payer MEDICARE, OTHER, SELFPAY | PROVIDERS: PCP Internal Medicine; Referring Provider Internal Medicine; Visit Provider Internal Medicine | DX: I25.10 Atherosclerotic heart disease of native coronary artery without angina pectoris (principal); I10 Essential (primary) hypertension; I71.40 Abdominal aortic aneurysm, without rupture, unspecified | CPT/HCPCS: 99212 ==

== ENCOUNTER 2023-11-27 08:19 | Outpatient (REF) | payer MEDICARE, OTHER, SELFPAY ==
--- NOTE | ~2023-11-27 | CT_ITS ---
EXAMINATION: CT CHEST WITHOUT CONTRAST CLINICAL INFORMATION: History of lung cancer. COMPARISON: 05/25/2023 and 11/11/2022 and 05/04/2022 TECHNIQUE: Multidetector volumetric CT imaging of the chest was done. Axial MIP volume rendering provided. Sagittal and coronal reformatted images were obtained. This CT examination was performed using dose optimization techniques as appropriate, variously including the following: *Automated exposure control *Adjustment of mA and/or kV according to patient size (this includes techniques or standardized protocols for targeted exams where dose is matched to indication/reason for exam; i.e. extremities or head) *Use of iterative reconstruction technique DLP: 149 mGy-cm FINDINGS: LUNGS: Again seen are changes of right upper lobectomy. Background emphysematous changes are again seen. No new or suspicious pulmonary nodules. No airspace consolidation. Central airways are patent. MEDIASTINUM: No bulky axillary, hilar or mediastinal lymphadenopathy. There is rightward shift in mediastinal structures. Great vessels are of normal caliber. Heart size is normal. No pericardial effusion. CORONARY ARTERY CALCIFICATION: Marked. PLEURA: A small right pleural effusion is again noted, likely chronic. No left pleural effusion. UPPER ABDOMEN: Not adrenal mass. OSSEOUS STRUCTURES: There is a stable compression fracture of T7 with anterior wedging. CT/CT chest wo IV con IMPRESSION: Status post right upper lobectomy with no evidence of disease recurrence. Unchanged chronic small right pleural effusion.
== END 2023-11-27 08:20 | disposition home or self-care (01) ==
LOC: HO.CT 08:19
PROVIDERS: PCP Internal Medicine; Visit Provider Surgery
DX: C34.91 Malignant neoplasm of unspecified part of right bronchus or lung (principal)
CPT/HCPCS: 71250

== ENCOUNTER 2024-01-03 07:12 | Outpatient (REF) | payer MEDICARE, OTHER, SELFPAY ==
[2024-01-03 07:24] LABS: MANUAL DIFF FLAG NO
[2024-01-03 07:55] LABS: Basophils Absolute Auto 0.1 X10*3/uL (0.0-0.2); Basophils Percent Auto 0.8 % (0-2); Eosinophils Absolute Auto 0.3 X10*3/uL (0.0-0.4); Eosinophils Percent Auto 3.5 % (0-4); Hematocrit 45.7 % (42.0-52.0); Hemoglobin 15.8 g/dl (14.0-18.0); Imm Gran Abs Auto 0.02 X10*3/uL (0.00-0.03); Imm Gran Pct Auto 0.2 % (0.0-0.4); Lymphocytes Absolute Auto 0.9 X10*3/uL (1.2-4.9); Mean Corpuscular HGB Conc 34.6 g/dl (31.0-36.0); Mean Corpuscular Hemoglobin 31.7 pg (27.0-33.0); Mean Corpuscular Volume 91.8 fL (80.0-98.0); Mean Platelet Volume 8.6 fL (9.4-12.4); Monocytes Percent Auto 11.7 % (2-11); Neutrophils Absolute Auto 6.1 x10*3/uL (2.0-8.3); Neutrophils Percent Auto 72.8 % (45-73); Platelet Count 262 X10*3/uL (160-400); Red Blood Count 4.98 X10*6/uL (4.60-5.80); Red Cell Distribution Width 12.5 % (11.0-16.0); White Blood Count 8.4 X10*3/uL (4.8-10.8)
[2024-01-03 08:03] LABS: Estimated Average Glucose 111 mg/dL; Hemoglobin A1c % 5.5 % (<6.0)
[2024-01-03 08:26] LABS: Alanine Aminotransferase 19 U/L (0-40); Albumin Level 4.5 g/dL (3.5-5.0); Alkaline Phosphatase 91 U/L (39-117); Anion Gap 14 (12-20); Aspartate Amino Transferase 18 U/L (5-37); Bilirubin Total 0.7 mg/dL (0.0-1.0); Blood Urea Nitrogen 24 mg/dL (9-16); Carbon Dioxide 29 mmol/L (22-29); Chloride 98 mmol/L (96-108); Cholesterol 127 mg/dL (<200); Estimated Glomerular Filt Rate > 60; Glucose Fasting 110 mg/dL (60-99); HDL Cholesterol 42 mg/dL (>40); LDL Cholesterol Calculated 68 mg/dL (<100); Potassium 3.8 mmol/L (3.3-5.1); Sodium 137 mmol/L (135-145); Triglycerides 88 mg/dL (<150)
[2024-01-03 08:43] LABS: TSH reflex Free T4 0.95 uIU/mL (0.32-4.0); Vitamin D 25-OH Total 41.9 ng/mL (>30)
[2024-01-03 09:26] LABS: Appearance Urine Clear; Color Urine Yellow; Glucose Urine UA Negative (Negative); Leukocyte Esterase Urine Negative (Negative); Nitrite Urine Negative (Negative); Specific Gravity - Urine <= 1.005 (1.005-1.025); UMIC TRIGGER UACC YES; Urine Blood Trace (Negative); Urine Ketones Negative (Negative); Urine Protein Negative (Neg-Trace)
[2024-01-03 09:38] LABS: RBC Urine 0-2 /HPF (0-2); Squamous Epithelial Cell Urine 0-2 /HPF (0-2); WBC Urine 0-5 /HPF (0-5)
[2024-01-03 09:39] LABS: Bacteria Urine None Seen (None Seen); Hyaline Casts Urine 0-2 /LPF (0-2)
== END 2024-01-03 07:13 | disposition home or self-care (01) ==
LOC: HO.LAB 07:12
PROVIDERS: PCP Internal Medicine; Visit Provider Internal Medicine
DX: I10 Essential (primary) hypertension (principal); R73.01 Impaired fasting glucose; E78.00 Pure hypercholesterolemia, unspecified; E55.9 Vitamin D deficiency, unspecified; R30.0 Dysuria
CPT/HCPCS: 36415; 80053; 80061; 81001; 82306; 83036; 84443; 85025

== ENCOUNTER 2024-01-04 09:43 | Outpatient (AMB) | payer MEDICARE, OTHER, SELFPAY ==
[2024-01-04 09:51] VITALS: BP 110/70; PULSE 101; O2SAT 91; BMI 24.6
--- NOTE | 2024-01-04 09:51 | MHC.PC.OV ---
Vital Signs 01/04/24 09:51 Height 5 ft 6 in Weight 152 lb 6 oz BMI 24.6 BP 110/70 Blood Pressure Location Lt brachial Position Sitting Pulse 101 H Pulse Source Pulse Oximeter Pulse Oximetry (%) 91 L Oxygen Delivery Method Room Air Intake Visit Reasons: hyperlipidemia, HTN, IFG, AAA, Hx of lung cancer Community Relations Officer Required: No Accompanied by: Self / Same As Patient Allergies No Known Allergies [No Known Allergies*] Allergy (Verified 01/04/24 10:27) Medication List - Last Reconciled 01/04/24 by Rafael Coleman MD aspirin 81 mg PO DAILY atorvastatin 80 mg PO DAILY cholecalciferol (vitamin D3) 50 mcg PO DAILY 90 days hydrochlorothiazide 12.5 mg PO QAM losartan 100 mg PO DAILY Tobacco use date assessed: 01/04/24 Fall risk assessment: No Falls in past year Last assessed Fall Risk: 01/04/24 Dental Screening Dental Screen Date: 01/04/24 Did you have a dental visit in the last 12 months?: Yes Did you have a dental problem in the last 6 months where you did not have access to dental care?: No Was dental information given to patient?: Patient has dentist HPI hyperlipidemia, HTN, IFG, AAA, Hx of lung cancer HPI Details Patient comes in today for his follow up visit States that he feels okay He denies any headaches or dizziness Denies any chest pains, no SOB No nausea/vomiting, no abdominal pain No change in bowel habits noted Had his follow up labs done yesterday - to discuss his results He was seen by Dr. Petersen recently for thoracic surgery follow up and was advised that he is doing well He also had his repeat chest CT done last month and was told that his CT came out okay as well [facility] Medical History Vitamin D deficiency Smoker Pure hypercholesterolemia Tubular adenoma of colon (~2015) Primary squamous cell carcinoma of right lung (~2020) Pulmonary nodule Other and unspecified hyperlipidemia Atherosclerotic cardiovascular disease Overweight (BMI 25.0-29.9) Abdominal aortic aneurysm without rupture (~2018) Benign essential hypertension COPD (chronic obstructive pulmonary disease) Surgical History History of lobectomy of lung (~10/13/21) History of lymph node biopsy (~03/29/21) History of basal cell carcinoma excision (~04/02/02) History of bronchoscopy (~03/04/21) History of AAA (abdominal aortic aneurysm) repair (~10/14/19) History of colonoscopy (~05/12/20) Family History Father Alzheimers disease Mother Brain aneurysm Brother No problems noted. Brother Brain tumor Social History Housing: House Alcohol intake: current Alcohol intake frequency: a few times a week Alcohol type: beer Patient Tobacco Use Status: Former Tobacco user e-Cigarette/Vaping Use: Never Used Second Hand Smoke Exposure: Yes service: No Current occupational status: retired Cognitive needs: No Hearing needs: No Vision needs: Yes Questionnaire PHQ-9 Over the last 2 weeks, how often have you been bothered by any of the following problems? 1. Little interest or pleasure in doing things: not at all 2. Feeling down, depressed, or hopeless: not at all 3. Trouble falling or staying asleep, or sleeping too much: not at all 4. Feeling tired or having little energy: not at all 5. Poor appetite or overeating: not at all 6. Feeling bad about yourself - or that you are a failure or have let yourself or your family down: not at all 7. Trouble concentrating on things, such as reading the newspaper or watching television: not at all 8. Moving or speaking so slowly that other people could have noticed. Or the opposite - being so fidgety or restless that you have been moving around a lot more than usual: not at all 9. Thoughts that you would be better off or of hurting yourself in some way: not at all Total score: 0 Depression Screening Interpretation: Negative Depression Screening Done: Yes 60553 - PHQ-9 Billing: Yes Source: Developed by Drs. Jose F Molina, Lelo Tapia, Sonny Gardner and colleagues, with an educational chano from [employer]. Thrive Questionnaire Date Thrive assessed: 01/04/24 I am a: Patient What is your living situation today?: I have a steady place to live Within the past 12 months, did the food you bought not last and you didn't have the money to get more?: Never true Within the past 12 months, did you worry whether your food would run out before you got money to buy more?: Never true Do you have trouble paying for medicines?: No Do you have trouble getting transportation to medical appointments?: No Do you have trouble paying your heating and electricity bill?: No Do you have trouble taking care of your child, family member or friend?: No Do you have trouble with day-to-day activities such as bathing, preparing meals, shopping, managing finances, etc.?: No Are you currently unemployed and looking for a job?: No Are you interested in more education?: No Please select the resources that you would like help with: None Currently or been in a relationship where the following occur: no concerns reported THRIVE Score: 0 AUDIT C Alcohol Use Questionnaire (AUDIT-C) 1. How often do you have a drink containing alcohol?: Never 3. How often do you have six or more drinks on one occasion?: Never Total Score: 0 Score Reviewed/Action Taken: Yes FAY-7 AMB Questionnaire FAY-7 Date FAY - 7 assessed: 01/04/24 Feeling nervous, anxious, or on edge: 0 = Not at all Not being able to stop or control worryin = Not at all Worrying too much about different things: 0 = Not at all Trouble relaxin = Not at all Being so restless that it is hard to sit still: 0 = Not at all Becoming easily annoyed or irritable: 0 = Not at all Feeling afraid as if something awful might happen: 0 = Not at all Total FAY-7 score (0-4 normal; 5-9 mild; 10-14 moderate; 15-21 severe): 0 Source: Developed by Drs. Jose F oMlina, Lelo Tapia, Sonny Gardner and colleagues, with an educational chano from [employer]. Review of Systems Const Denies fatigue, Denies fever(s) and Denies headache(s) ENT Denies dysphagia, Denies dizziness, Denies otalgia, Denies headache(s), Denies neck pain, Denies odynophagia and Denies sore throat Card Denies chest pain, Denies palpitations and Denies dyspnea Resp Denies cough and Denies dyspnea GI Denies abdominal pain, Denies constipation, Denies dysphagia, Denies heartburn, Denies diarrhea, Denies nausea, Denies odynophagia and Denies vomiting Denies dysuria, Denies nocturia and Denies urinary frequency Musc Denies back pain, Denies arthralgias and Denies neck pain Neuro Denies dizziness and Denies headache(s) Endo Denies fatigue and Denies palpitations Physical exam (Primary Care) Vital Signs: Last Vital Signs Pulse 101 H 01/04/24 09:51 BP 110/70 01/04/24 09:51 Pulse Ox 91 L 01/04/24 09:51 Oxygen Delivery Method Room Air 01/04/24 09:51 BMI result Body Mass Index 24.6 Tobacco/Smoking Status: Tobacco use Status Tobacco use date assessed 01/04/24 01/04/24 09:56 Patient Tobacco Use Status Former Tobacco user 01/04/24 09:56 e-Cigarette/Vaping Use Never Used 01/04/24 09:56 PHQ-9: PHQ-9 Score PHQ-9: Total score 0 01/04/24 10:31 Depression Screening Interpretation: Negative Thrive Assessment: Date of Thrive Assessment Date Thrive assessed 01/04/24 01/04/24 09:56 Currently or been in a relationship where the following occur: no concerns reported Const General: no acute distress and alert HENMT Ears: TM's normal bilaterally and EAC's normal Throat: Yes posterior oropharynx normal and Yes tonsils normal (no TP congestion noted) Neck Neck: Yes no lymphadenopathy and Yes supple Resp Auscultation: clear to auscultation bilaterally, no rales and no wheezes Cardio Rate: regular rate Rhythm: regular rhythm Heart sounds: no murmurs GI Palpation (GI): Soft to palpation and nontender Auscultation: normal bowel sounds Extrem General: Yes no clubbing, cyanosis or edema Results Reviewed Results Reviewed: Laboratory Tests 01/03/24 01/03/24 01/03/24 07:15 07:23 07:23 WBC 8.4 Hgb 15.8 Hct 45.7 Plt Count 262 Sodium 137 Potassium 3.8 Creatinine 1.10 Estimated GFR > 60 Fasting Glucose 110 H Hemoglobin A1c % 5.5 Calcium 10.0 AST 18 ALT 19 Triglycerides 88 Cholesterol 127 LDL Cholesterol, Calc 68 HDL Cholesterol 42 25-OH Vitamin D Total 41.9 TSH 0.95 Ur Specific [place] <= 1.005 Urine Protein Negative Urine Glucose (UA) Negative Urine Blood Trace Urine Nitrite Negative Ur Leukocyte Esterase Negative Assessment and Plan Assessment & Plan (1) Primary squamous cell carcinoma of right lung: Onset Date: ~2020 Comment: (SCC of RUL - cT2N2, stage IIIA, dx 02/2021 - s/pconcurrent chemoradiotherapy & RUL Lobectomy) Code(s): C34.91 - Malignant neoplasm of unspecified part of right bronchus or lung Plan: Patient completed his chemoradiation therapy (weekly Carboplatin + Taxol and radiation Tx) 2 to 3 years ago (started on 05/04/2021 and completed on 06/14/2021) and underwent VATS with lobectomy, DaVinci right upper lobectomy and mediastinal lymphadenectomy with Dr. Petersen on 10/13/2021 Pathology revealed right upper lobe mass with fibrosis, necrosis, no viable tumor cells. Three benign perihilar lymph nodes were negative for carcinoma. Pathological tumor stage ypT0, ypN0. As he had complete molecular response to Tx, was advised that there is no need for further adjuvant therapies Repeat chest CT in April 2022 revealed interval right upper lobe resection with postsurgical changes, a partially loculated right pleural effusion, improvement in mediastinal lymphadenopathy and changes of emphysema. There are no new concerning findings 6 months follow up CTs done on 11/11/2022 and on 05/25/2023 and more recently in 11/2023 all came out negative for disease recurrence Follow up with oncology and with thoracic surgery as scheduled for continuing surveillance (2) Abdominal aortic aneurysm without rupture: Onset Date: ~2018 Comment: (AAA s/p endovascular aortic aneurysm repair with Endologix graft - 10/14/2019) Code(s): I71.4 - Abdominal aortic aneurysm, without rupture Qualifiers: Abdominal aorta location: unspecified Qualified Code(s): I71.40 - Abdominal aortic aneurysm, without rupture, unspecified Plan: Stable Repeat CTA of the abdomen and pelvis done in May 2022 revealed findings of s/p aortoiiliac repair of AAA. The aortic sac size has decreased in size significantly without evidence of a convincing endoleak, and stable size of the excluded right common iliac artery aneurysm. Was seen by Dr. Charles for his vascular surgery follow up and was reassured of his negative findings Follow up with vascular surgery as scheduled for continuing surveillance (3) Benign essential hypertension: Code(s): I10 - Essential (primary) hypertension Plan: Reinforced low sodium diet - goal is systolic BP of 120 mm or less because of his AAA Continue Losartan 100 mg QD and HCTZ 12.5 mg QD (4) Atherosclerotic cardiovascular disease: Code(s): I25.10 - Atherosclerotic heart disease of [place] coronary artery without angina pectoris Plan: Continue low dose Aspirin 81 mg QD Follow up with cardiology as scheduled (5) Pure hypercholesterolemia: Code(s): E78.00 - Pure hypercholesterolemia, unspecified Plan: Results of his labs done yesterday reviewed and discussed with patient Reinforced low cholesterol diet Continue Atorvastatin 80 mg QD Will recheck his labs and fasting lipids in 6 months for follow up (6) COPD (chronic obstructive pulmonary disease): Comment: (COPD mild/stable, not requiring medication) Code(s): J44.9 - Chronic obstructive pulmonary disease, unspecified Qualifiers: COPD type: unspecified COPD Qualified Code(s): J44.9 - Chronic obstructive pulmonary disease, unspecified Plan: Stable - follow up with pulmonary (Dr. Friedman) as scheduled (7) Impaired fasting glucose: Code(s): R73.01 - Impaired fasting glucose Plan: Advised that his FBS was again elevated at 110 mg/dl on his labs done yesterday but his HgbA1c came back normal at 5.5% Reinforced low calorie/low carb diet Will continue to monitor his blood sugar and HgbA1c regularly (8) Vitamin D deficiency: Code(s): E55.9 - Vitamin D deficiency, unspecified Plan: Corrected - continue Vitamin D3 2000 units QD Plan Follow up in 6 months Coding Level of Care Code Est Pt Level 4 (46676) Diagnoses Primary squamous cell carcinoma of right lung C34.91 Abdominal aortic aneurysm (AAA) without rupture, unspecified part I71.40 Abdominal aorta location: unspecified Benign essential hypertension I10 Atherosclerotic cardiovascular disease I25.10 Pure hypercholesterolemia E78.00 Chronic obstructive pulmonary disease, unspecified COPD type J44.9 COPD type: unspecified COPD Impaired fasting glucose R73.01 Vitamin D deficiency E55.9
== END 2024-01-04 10:38 | disposition home or self-care (01) ==
PROVIDERS: PCP Internal Medicine; Visit Provider Internal Medicine
DX: C34.91 Malignant neoplasm of unspecified part of right bronchus or lung (principal); I71.40 Abdominal aortic aneurysm, without rupture, unspecified; J44.9 Chronic obstructive pulmonary disease, unspecified; I10 Essential (primary) hypertension; I25.10 Atherosclerotic heart disease of native coronary artery without angina pectoris; E78.00 Pure hypercholesterolemia, unspecified; R73.01 Impaired fasting glucose; E55.9 Vitamin D deficiency, unspecified
CPT/HCPCS: 99214